=== PATIENT | female | born 1955 | race Caucasian/White ===

== ENCOUNTER 2024-08-19 11:01 | Emergency (ER) | payer MEDICARE, MEDICAID, SELFPAY ==
[2024-08-19 11:02] VITALS: BP 124/92; PULSE 106; RESP 18; TEMP 36.1; O2SAT 99; BMI 37.5
[2024-08-19 11:04] VITALS: BP 124/92; PULSE 106; RESP 18; TEMP 36.1; O2SAT 98
--- NOTE | 2024-08-19 11:13 | EX.ED.DYSGE1 ---
HPI History of Present Illness Chief Complaint: General Illness Informant: patient and family Onset/Context/Timing Onset: Days (2) Context: Sudden Onset Timing: Continuous Quality: Expressive aphasia Location: Speech Worsened by: Nothing Relieved by: Nothing Narrative Narrative: Patient presents with difficulty speaking that has been constant for the past 2 days. Patient was recently treated for a dental infection. Patient was started on antibiotics which has been helping. Family states patient has been having difficulty getting words out so and saying what she wants to say for the past 2 days. Patient denies any headaches. Patient denies any nausea or vomiting. Patient denies any paresthesias or weakness. Patient denies any other symptoms. PFSH PFSH Medical History no medical history no medical history Home Medications ?Medication ?Instructions ?Recorded ?Last Taken ?Type NK 08/19/24 Unknown History Allergy/AdvReac Type Severity Reaction Status Date / Time No Known Allergies Allergy Verified 08/19/24 11:06 Family History no significant family his Surgical History no surgical history no surgical history Social History (Updated 08/19/24 @ 11:[address] Rojelio Ferrer, DO) Smoking Status: Current every day smoker tobacco type: cigarettes Smoking packs per day: 1 Smoking cigarettes per day: 20.0 ROS ROS ED Constitutional Constitutional ED: Denies chills or fever(s) Eyes Eyes: Denies blurry vision or change in vision ENT ENT ED: Denies rhinorrhea or sore throat Cardiovascular Cardiovascular: Denies chest pain or palpitations Respiratory/Chest Respiratory/Chest: Denies cough or dyspnea Gastrointestinal Gastrointestinal: Denies nausea or vomiting Genitourinary Genitourinary ED: Denies dysuria or hematuria Musculoskeletal Musculoskeletal: Denies back pain or neck pain Integumentary Denies abscess or rash Neurologic Neurologic: Denies headache(s) or weakness Allergic/Immunologic Allergic/Immunologic ED: Denies mouth swelling or urticaria EXAM Physical Exam Const Vital Signs: 08/19/24 11:02 08/19/24 11:04 08/19/24 11:16 Temperature 96.9 F L 96.9 F L Temperature Source Oral Oral Pulse Rate 106 H 106 H Respiratory Rate 18 18 Respiratory Pattern Normal Blood Pressure 124/92 H 124/92 H Blood Pressure Mean 102 102 Pulse Ox 99 98 Oxygen Delivery Method Room Air Room Air 08/19/24 11:20 08/19/24 11:50 08/19/24 12:20 Temperature Temperature Source Pulse Rate 100 95 Respiratory Rate 18 17 Respiratory Pattern Blood Pressure 190/66 H 158/76 H Blood Pressure Mean 107 103 Pulse Ox 98 97 Oxygen Delivery Method Room Air Room Air Room Air 08/19/24 12:30 Temperature Temperature Source Pulse Rate 96 Respiratory Rate 14 Respiratory Pattern Blood Pressure 158/76 H Blood Pressure Mean 103 Pulse Ox 100 Oxygen Delivery Method Room Air Positive well nourished and well developed General Appearance ED: well developed and NAD HEENT Reports moist mucous membranes Neck supple and no JVD Resp normal respiratory effort and clear to auscultation bilaterally Cardio regular rate and regular rhythm GI non-tender and non-distended Palpation: soft Extremity normal to inspection General Extremety ED: Negative for edema or tenderness General Extremity: Negative for edema Neuro oriented x3, CN's II-XII intact bilaterally and no sensory deficits noted Sensorium / Orientation: alert Motor Exam: strength 5/5 throughout Psych mental status grossly normal MDM MDM MDM Narrative Medical decision making narrative: Differential diagnosis includes but is not limited to stroke, electrolyte abnormality, intracranial bleeding, sepsis, dehydration, cardiac dysrhythmia, cardiac ischemia, coagulopathy, and anxiety. EKG will be obtained to assess for cardiac dysrhythmia and cardiac ischemia. CT scan of the brain will be obtained to assess for intracranial bleeding and stroke. CTA of the head and neck will be obtained to assess for large vessel occlusion and carotid stenosis. Chest x-ray will be obtained to assess for pneumonia and bronchitis. CBC will be obtained to assess for leukocytosis and anemia. Basic metabolic profile will be obtained to assess for electrolyte abnormality renal function. PT with INR and PTT will be obtained to assess for coagulopathy. Serum lactate will be obtained to assess for sepsis. History & Record Review Additional record(s) reviewed:: No prior records Lab Data Attestation: I reviewed the patient's lab results. Lab results narrative: CBC was reviewed and was within normal limits. Basic metabolic profile was reviewed. Creatinine was slightly elevated at 1.37. Glucose was elevated at 210. The remainder was within normal limits. High-sensitivity troponin was reviewed and was less than 6. Labs: Laboratory Results - last 24 hr 08/19/24 11:50 WBC 7.7 RBC 4.93 Hgb 14.9 Hct 44.1 MCV 89.5 MCH 30.2 MCHC 33.8 RDW Std Deviation 44.6 H RDW Coeff of Temo 13.7 Plt Count 258 MPV 10.4 Immature Gran % (Auto) 0.400 Neut % (Auto) 63.5 Lymph % (Auto) 28.6 Knott % (Auto) 5.2 Eos % (Auto) 0.7 Baso % (Auto) 1.6 H Absolute Neuts (auto) 4.9 Absolute Lymphs (auto) 2.19 Nucleated RBC % 0 PT 14.6 INR 1.1 APTT 29.1 Sodium 135 Potassium 4.1 Chloride 99 Carbon Dioxide 21.7 Anion Gap 14 BUN 16 Creatinine 1.37 H Estim Creat Clear Calc 40.03 L Est GFR (MDRD) Non-Af 41 L BUN/Creatinine Ratio 11.6 Glucose 210 H Calcium 9.3 Troponin T High Sens < 6 Radiography Chest X-Ray - ED: 1 View, Read by ED Physician, Read by Radiologist and No Acute Disease Diagnostic Testing: Clinical Impression(s) from Imaging Studies Brain CT 08/19/24 11:20 IMPRESSION: 1. No acute intracranial finding. 2. Findings of chronic microvascular ischemic changes and age-related changes. Dr. Fernandez discussed these findings via telephone with Dr. Ferrer at 12:22 p.m. on 08/19/2024. Reading Location: [facility] Head/Neck CTA 08/19/24 11:21 IMPRESSION: Limited visualization due to motion artifact. No large vessel occlusion, AVM or aneurysm. Reading Location: [facility] Chest X-Ray 08/19/24 12:02 IMPRESSION: COPD. No acute findings. Reading Location: [facility] Portable 1 view chest x-ray was obtained. On my independent interpretation, lung khan are clear. There is normal cardiac silhouette. Bony thorax is normal. There is no acute process noted. Radiologist also interpreted the x-ray and agrees. CT scan of the brain was obtained. There is no acute intracranial abnormality. This was interpreted by the radiologist and was also independently reviewed by myself. CTA of the head and neck was obtained. There is no evidence of large vessel occlusion, AVM, or aneurysm. This was interpreted by the radiologist and is also independently reviewed by myself. EKG Initial EKG: Attestation: I personally reviewed and interpreted this EKG as follows: Interpretation: No Acute Injury Pattern and Sinus Tachycardia (103) Comments: EKG was obtained. On my independent interpretation, it showed a sinus tachycardia with a rate of 103. TX interval, QRS interval, and QTc intervals were all normal. [place] was normal. There are no acute ST or T wave changes. Prior EKG tracings: not available for review Prior: No Prior Treatment and Re-Evaluation :: Stroke workup was obtained. Patient was advised of her findings. Patient is still having difficulty getting her words out. Patient was advised that this could be due to a stroke. Patient was advised of the need for further testing and admission. Patient is refusing to be admitted. Patient states she needs to go home and take care of her dog. I advised the patient that admission would expedite her testing process and treatment. However, patient refuses to be admitted and will sign out AGAINST MEDICAL ADVICE. Patient was instructed to follow-up with a primary care physician in 5 to 7 days. Patient was instructed to return if worse in any way. Patient and family understood and were agreeable with the plan. All questions were answered. Discharge Plan Triage Chief Complaint: General Illness ED Provider: Rojelio Ferrer Dx/Rx/DC Orders Clinical Impression: Expressive aphasia, Tobacco use disorder Instructions: What Is Aphasia?, Dysarthria: Improving Speech, Treating Aphasia, ED How to Quit Smoking Prescriptions: No Action NK Primary Care Provider: Care Physician,No Primary Referrals: Care Physician,No Primary [Primary Care Provider] - Medical [place],Abby Moreno [Non-Staff] - As soon as possible Activity Restrictions/Additional Instructions: Take 1 regular strength aspirin daily Print Language: Portuguese Disposition Disposition: Against Medical Advice
--- NOTE | 2024-08-19 11:20 | EKG12_ITS ---
Test Reason : GENERAL ILLNESS Blood Pressure : */* mmHG Vent. Rate : 103 BPM Atrial Rate : 103 BPM P-R Int : 156 ms QRS Dur : 78 ms QT Int : 332 ms P-R-T Axes : 22 30 47 degrees QTcB Int : 434 ms Sinus tachycardia Low voltage QRS Borderline ECG Confirmed by CARL DOTSON, LONNIE ([id number]), editor managing newspaper DANYEL DELACRUZ ([id number]) on 08/21/2024 7:44:13 AM Referred By: BRICE Confirmed By: LONNIE HENRY MD
--- NOTE | 2024-08-19 11:20 | CT_ITS ---
EXAM: STROKE BRAIN/HEAD WITHOUT CONT CLINICAL HISTORY: 69 y/o F with NEURO DEFICIT, ACUTE, STROKE SUSPECTED. COMPARISON: None. TECHNIQUE: Routine CT imaging of the head without IV contrast. Additional multiplanar reformats were obtained. Dose reduction techniques were used including intermediate exposure control (AEC),iterative reconstruction technique, and/or mA and/or KV dose adjustments based on patient's size. FINDINGS: The ventricles and subarachnoid spaces are normal for patient age. No acute intracranial hemorrhage or herniation. Small chronic ischemic type infarcts within the left frontoparietal lobe and left cerebellum. Lacunar type infarcts within the bilateral basal ganglia and left centrum semiovale. Mild scattered supratentorial white matter hypodensities. The gonzalez-white matter interfaces are otherwise maintained. The orbits, visualized paranasal sinuses and mastoids are unremarkable. No acute calvarial fracture or scalp hematoma. CT/STROKE Brain/Head without Cont IMPRESSION: 1. No acute intracranial finding. 2. Findings of chronic microvascular ischemic changes and age-related changes. Dr. Fernandez discussed these findings via telephone with Dr. Ferrer at 12:22 p.m. on 08/19/2024. Reading Location: [id number]
--- NOTE | 2024-08-19 11:21 | CT_ITS ---
PROCEDURE: STROKE CTA HEAD AND NECK W/CON 08/19/2024 REASON FOR EXAM: NEURO DEFICIT, ACUTE, STROKE SUSPECTED TECHNIQUE: STROKE CTA HEAD AND NECK W/CON Multiplanar and multisequence images were obtained. CONTRAST: ISOVUE 370 VOLUME: 100 mL One or more dose reduction techniques were used (e.g., Automated exposure control, adjustment of the mA and/or kV according to patient size, use of iterative reconstruction technique). RADIATION DOSE SUMMARY: CTDlvol: 100 mGy DLP: 1800 mGycm COMPARISON: Same-day noncontrast CT head. FINDINGS: See same day CT head for discussion of nonvascular findings. Visualization is significantly limited by motion artifact despite repeated imaging sequences. CTA neck: Three-vessel aortic arch with mixed calcific plaque. The origins of the bilateral vertebral arteries are widely patent. Mixed calcific plaque of the bilateral cervical carotid arteries without focal stenosis or narrowing by NASCET criteria. CTA head: Atherosclerotic plaque of the bilateral carotid siphons resulting in moderate multifocal narrowing on the right. The bilateral anterior, middle and posterior cerebral arteries are grossly patent. Visualization of the more distal arteries is limited by motion artifact. No obvious aneurysm or AVM. Major venous structures: Grossly unremarkable. Other findings: Right thyroid lobe nodules which do not meet criteria for dedicated follow-up. Multiple dental caries. Mild cervical spondylosis. Biapical emphysema. CT/STROKE CTA Head AND Neck W/Con IMPRESSION: Limited visualization due to motion artifact. No large vessel occlusion, AVM o r aneurysm. Reading Location: [id number]
--- OUTSIDE RECORDS SUMMARY | 2024-08-19 11:34 | XMS RPT_ITS | CCD ---
Author Organization [facility] Care Team Providers Care Bellman Driver Name Role Phone Unavailable Primary Care Provider NELIA Chaney Attending Unavailable Problems Problem Classification Problem Date Documented Da te Episodic/Chronic Residual codes; unclassified (1 source) Medical care unavailable; Translations: [Procedure and treatment not carried out for other reasons] 08-29-2023 Episodic Residual codes; unclassified (1 source) Procedure and treatment not carried out for other reasons; Translations: [Treatment not available] Onset: 08-29-2023 Episodic Encounters Encounter Date Encounter Type Care Provider Facility Start: 08-29-2023 End: 08-29-2023 ambulatory NELIA BURKS Facility:[facility] Start: 08-29-2023 E-mail encounter fro m caregiver Nelia Burks ALEXANDRA.JACKI Work Phone: Telemedicine Start: 08-29-2023 End: 08-29-2023 Telemedicine consultation with patient Nelia Burks ALEXANDRA.JACKI Work Phone: Telemedicine Comment on above: Virtual visit Treatment not availa ble (Primary Dx) Plan of Treatment Date Care Activity Detail Author Start: 11-06-2023 Influenza vaccination Influenz a Vaccine (Season Ended) [facility] Start: 03-07-2023 Advance Directive Discussion Advance Directive Discussion [facility] Start: 03-07-2023 Behavioral Health Screening Behavioral Health Screening [facility] Start: 11-05-2022 Covid-19 Vaccine ( season) Covid-19 Vaccine ( season) [facility] Start: 2018 Pneumococcal Vaccine : 65+ (1 of 1 - PCV) Pneumococcal Vaccine: 65+ (1 of 1 - PCV) [facility] Start: 2018 Screening for osteoporosis Bone Density Screening [facility] Start: 2013 RSV Vaccine (1 - 1-d ose 60+ series) RSV Vaccine (1 - 1-dose 60+ series) [facility] Start: 2003 Shingrix Vaccine (1 of 2) Shingrix V accine (1 of 2) [facility] Start: 1998 Diabetes Screening Diabetes Screenin g [facility] Start: 1998 Lipid panel Lipid Screening [facility] Start: 1998 Screening for malign ant neoplasm of colon [facility] Start: 1993 Screening for malign ant neoplasm of breast Mammogram Screening [facility] Start: 1972 Urine microalbumin profile DTaP,Tdap,Td Vaccine (1 - Tdap) [facility] Start: 1971 Hepatitis C screening Hepatitis C Sc king [facility] Payers Date Payer Category [place]ayer [place] [id number] 2019-Present [phone] [address] [place] [address] Medicaid [id number] 2019 Medicaid [id number] Social History Date Type Detail Facility Tobacco smoking status NHIS Tobacco smoking consumption unknown [facility] Work Phone: Start: 1955 Sex Assigned At Not on file [facility] Gender identity Not on file [facility] inic Progress note 08-29-2023 Note Date & Type Note Facility 08-29-2023 Note HNO ID: [id number] Author: NELIA BURKS APRN.JACKI Service: ? Author Type: Nurse Practitioner Type: Progress Notes Filed: 08/29/2023 16:16 Note Text: Patient LWBS. [facility] History of Present illness Narrative 08-29-2023 Nelia Burks APRN.CNP - 08/29/2023 4:16 PM EDT Note Date & Type Note Facility 08-29-2023 History of Presen t illness Narrative Images from the original note were not included. Patient LWBS. documented in this encounter [facility] Evaluation note Note Date & Type Note Facility Evaluation note Diagnosis Treatment not available- Primary Procedure not carried out for other reasons documented in this encounter [facility] Summary Purpose Family History No Family History Records Found Advance Directives No Advanced Directives Records Found Additional Source Comments Source Comments (unrecognize d section and content) In the event this informatio n is protected by the [facility] Confidentiality of Alcohol and Drug Abuse Patient Records regulations: The Federal rules restrict any use of the information to criminally investigate or prosecute any alcohol or drug abuse patient[facility] event this information is protected by the Federal Confidentiality of Alcohol and Drug Abuse Patient Records regulations: The Federal rules restrict any use of the information to criminally investigate or prosecute any alcohol or drug abuse patient.[facility] Reason for Visit (unrecogniz ed section and content) Reason Comments Appointment Cancelled INFORMATION SOURCE (unrecogn ized section and content) DATE CREATED AUTHOR 09/03/2023 [facility] FOR RECORDS PERTAINING TO PATIENTS WHO ARE OR HAVE BEEN ENROLLED IN A CHEMICAL DEPENDENCY/SUBSTANCEABUSE PROGRAM, SOME INFORMATION MAY BE OMITTED. This clinical summary was aggregated from multiple sources. Caution should be exercised in using it in the provision of clinical care. This summary normalizes information from multiple sources, and as a consequence, information in this document may materially change the coding, format and clinical context of patient data. In addition, data may be omitted in some cases. CLINICAL DECISIONS SHOULD BE BASED ON THE PRIMARY CLINICAL RECORDS. [employer] [facility]. provides no warranty or guarantee of the accuracy or completeness of information in this document.
[2024-08-19 11:50] VITALS: BP 190/66; PULSE 100; RESP 18; O2SAT 98
[2024-08-19 11:58] LABS: Absolute Lymphocyte Count 2.19 X10^3/uL (0.83-4.51); Absolute Neutrophil Count 4.9 X10^3/uL (2.0-7.7); Basophil# 0.12 X10^3/uL; Basophil% 1.6 % (0-1); Eosinophil# 0.05 X10^3/uL; Eosinophils% 0.7 % (0-5); Hematocrit 44.1 % (37-47); Hemoglobin 14.9 g/dL (12.0-15.0); Lymphocyte # 2.19 X10^3/ul (0.83-4.51); Lymphocyte % 28.6 % (19-41); Mean Corp Hgb Conc 33.8 g/dL (32-36); Mean Corpuscular Hgb 30.2 pg (27.0-32.0); Mean Corpuscular Volume 89.5 fL (81-99); Mean Platelet Vol. 10.4 fl (6.2-12.0); Monocyte% 5.2 % (0-10); NRBC Flagged by Analyzer 0 % (0-5); Neutrophil # 4.86 X10^3/uL (2.7-7.7); Neutrophil % 63.5 % (47-70); Platelet Count 258 K/mm3 (150-450); RBC Distribution Width CV 13.7 % (11.6-14.6); RBC Distribution Width SD 44.6 fl (35.1-43.9); Red Blood Count 4.93 M/mm3 (4.2-5.4); White Blood Count 7.7 K/mm3 (4.4-11.0)
--- NOTE | 2024-08-19 12:02 | RAD_ITS ---
PROCEDURE: CHEST 1 VIEW 08/19/2024 REASON FOR EXAM: NEURO DEFICIT, ACUTE, STROKE SUSPECTED TECHNIQUE: Frontal view of the chest. COMPARISON: None. FINDINGS: Hardware: None. Heart: The heart size is normal. Lungs: Findings of emphysema with scattered areas of scarring. No focal consolidation, pleural effusion or pneumothorax. Bones: Degenerative changes are identified within the thoracic spine. Bilateral glenohumeral joint arthrosis. RAD/Chest 1 View IMPRESSION: COPD. No acute findings. Reading Location: [id number]
[2024-08-19 12:10] LABS: Partial Thromboplast Time 29.1 Seconds (24.1-36.2)
[2024-08-19 12:20] VITALS: BP 158/76; PULSE 95; RESP 17; O2SAT 97
[2024-08-19 12:25] LABS: International Normalized Ratio 1.1; Prothrombin Time (Protime)PT. 14.6 SECONDS (11.7-14.9)
--- NOTE | 2024-08-19 12:25 | CM.ED ---
Social Work Date of referral: 08/19/24 Reason for referral: No PCP Referred by: Social Work Identification Patient provided consent to social work visit. Director Of Reservations provided written resource for the [facility] for PCP, dental as well as other services offered. Patient accepted and expressed appreciation. No other requests/needs identified at this time. Pema Mathis, APICULTURE TEACHER, HISTORICAL GUIDE
[2024-08-19 12:28] LABS: Anion Gap 14 (5-15); BUN 16 mg/dL (4-19); BUN/Creat Ratio 11.6 RATIO (10-20); Calcium,Total 9.3 mg/dL (7.6-11.0); Carbon Dioxide 21.7 mmol/L (21.0-32.0); Chloride 99 mmol/L (98-108); Creatinine, Serum 1.37 mg/dL (0.70-1.20); EST Glomerular Filtration Rate 41 (>60); Estimated Creatinine Clearance 40.03 ml/min (50-250); Glucose 210 mg/dL (70-99); Potassium 4.1 mmol/L (3.3-5.1); Sodium Level 135 mmol/L (133-145); Troponin T High Sensitivity < 6 ng/L (<=14)
[2024-08-19 12:30] VITALS: BP 158/76; PULSE 96; RESP 14; O2SAT 100
== END 2024-08-19 13:12 | disposition left against medical advice (07) ==
PROVIDERS: Emergency Provider Emergency Medicine; Visit Provider Emergency Medicine
DX: R47.01 Aphasia (principal); J44.9 Chronic obstructive pulmonary disease, unspecified; F17.210 Nicotine dependence, cigarettes, uncomplicated; Z53.29 Procedure and treatment not carried out because of patient's decision for other reasons
CPT/HCPCS: 70450; 70496; 70498; 71045; 80048; 84484; 85025; 85610; 85730; 93005; 99284; Q9967

== ENCOUNTER → 2024-08-29 | Outpatient (CLI) | payer MEDICARE, MEDICAID, SELFPAY ==
[2024-08-29 16:40] LABS: Absolute Neutrophil Count 9.8 X10^3/uL (2.0-7.7); Basophil% 0.8 % (0-1); Eosinophil# 0.06 X10^3/uL; Eosinophils% 0.5 % (0-5); Hematocrit 42.3 % (37-47); Hemoglobin 14.1 g/dL (12.0-15.0); Lymphocyte % 16.3 % (19-41); Mean Corp Hgb Conc 33.3 g/dL (32-36); Mean Corpuscular Hgb 30.2 pg (27.0-32.0); Mean Corpuscular Volume 90.6 fL (81-99); Mean Platelet Vol. 10.9 fl (6.2-12.0); Monocyte# 0.79 X10^3/uL; Monocyte% 6.1 % (0-10); NRBC Flagged by Analyzer 0 % (0-5); Neutrophil # 9.78 X10^3/uL (2.7-7.7); Neutrophil % 76.1 % (47-70); Platelet Count 258 K/mm3 (150-450); RBC Distribution Width CV 13.5 % (11.6-14.6); Red Blood Count 4.67 M/mm3 (4.2-5.4); White Blood Count 12.9 K/mm3 (4.4-11.0)
[2024-08-29 17:54] LABS: ALB/GLOB Ratio 1.3 RATIO (0.9-2.4); AST(SGOT) 18 U/L (<=31); Alanine Aminotransfer ALT/SGPT 15 U/L (<=34); Alkaline Phosphatase 80 U/L (35-104); Anion Gap 14 (5-15); BUN 9 mg/dL (4-19); BUN/Creat Ratio 7.9 RATIO (10-20); Calcium,Total 9.3 mg/dL (7.6-11.0); Carbon Dioxide 23.8 mmol/L (21.0-32.0); Chloride 99 mmol/L (98-108); Cholesterol 164 mg/dL (<=200); Creatinine, Serum 1.14 mg/dL (0.70-1.20); EST Glomerular Filtration Rate 51 (>60); Globulin 3.2 g/dL (2.2-4.2); Glucose 183 mg/dL (70-99); High Density Lipoprotein 55 mg/dL; Low Density Lipoprotein Calc. 80 mg/dL; Protein, Total 7.2 g/dL (5.9-8.4); Sodium Level 137 mmol/L (133-145); Total Bilirubin 0.41 mg/dL (0.00-1.30); Triglycerides 144 mg/dL; Very Low Density Lipoprotein 29 mg/dL (5-40); cholesterol:hdl ratio screen 2.98
== END | disposition home or self-care (01) ==
LOC: VSLAB 10:55
DX: I10 Essential (primary) hypertension (principal)
CPT/HCPCS: 36415; 80053; 80061; 84443; 85025

== ENCOUNTER → 2024-09-17 | Outpatient (CLI) | payer MEDICARE, MEDICAID, SELFPAY ==
--- NOTE | 2024-09-17 08:42 | RDU_ITS ---
Reason For Study Reason For Study: CKD Right Renal Artery Left Renal Artery Right renal artery ostium 207.8/41.8 Left renal artery ostium 151/21.7 RSV/EDV. PSV/EDV. Right renal artery proximal 166.9/14.9 Left renal artery proximal PSV/EDV PSV/EDV. 126.3/19 . Right renal artery mid 157.3/20 PSV/EDV. Left renal artery mid 181.3/24.5 Right renal artery distal 132.3/22.1 PSV/EDV . PSV/EDV. Left renal artery distal 111.9/21.2 Right RAR 3.72. PSV/EDV. Right Renal Parenchyma Left RAR 3.24. Upper Pole Medula 41.5/8 PSV/EDV. Left Renal Parenchyma Right upper pole medulla EDR 0.2 . Left upper pole medulla 48.6/10.2 Right upper pole medulla R.I. 0.81 . PSV/EDV . Upper K[place] Cortx 24.5/4.2 PSV/EDV. Left upper pole medulla EDR 0.2 . Right upper pole cortex EDR 0.2 . Left upper pole medulla R.I. 0.79 . Right upper pole cortex R.I. 0.83 . UP Cortex 31.2/9.3 PSV/EDV. Right lower Pole medulla 35.5/6.4 Left upper pole cortex EDR 0.3 . PSV/EDV . Left upper pole cortex R.I. 0.70 . Right lower pole medulla EDR 0.2 . Left lower Pole medulla 44.9/8.4 Right lower pole medulla R.I. 0.82 . PSV/EDV . Lower Pole Cortex 26.2/4.2 PSV/EDV. Left lower pole medulla EDR 0.2 . Right lower pole cortex EDR 0.2 . Left lower pole medulla R.I. 0.81 . Right lower pole cortex R.I. 0.84 . Lower Pole Cortx 27.6/8.4 PSV/EDV. Right Renal Hilar Left lower pole cortex EDR 0.3 . Right Hilar avg 73.6/12.4 PSV/EDV. Left lower pole cortex R.I. 0.70 . Right hilar acceleration time 40 m/sec. Left Renal Hilar Right Renal Dimensions LT Hilar avg 57.3/11.9 PSV/EDV . Right kidney size 8.91 cm . Left hilar acceleration time 20 m/sec. Right cortical dimension 1.30 cm . Left Renal Dimensions Left kidney size 9.34 cm . Left cortical dimension 1.32 cm . Aorta Proximal abdominal aorta 1.25 x 1.27 cm . Proximal abdominal aorta peak systolic velocity is 55.9 cm/sec . Distal abdominal aorta 1.12 x 1.19 cm . Distal abdominal aorta peak systolic velocity is 36.7 cm/sec . VL/Renal Artery Duplex Ultrasound Interpretation Summary Right renal artery patent with > 60% stenosis. Left renal artery patent with < 60% stenosis. Right renal vein patent. Left renal vein patent. Right kidney diminshed in size. Left kidney normal in size. Ordering Physician: Mai Beckham Referring Physician: Mai Beckham Performed By: Sharifa Moses RVT
== END | disposition home or self-care (01) ==
DX: N18.9 Chronic kidney disease, unspecified (principal)
CPT/HCPCS: 93975

== ENCOUNTER 2024-09-18 18:25 | Observation (INO) | payer MEDICARE, MEDICAID, SELFPAY ==
[2024-09-18 18:28] VITALS: BP 168/95; PULSE 133; RESP 21; TEMP 36.7; O2SAT 98; BMI 37.3
[2024-09-18 18:38] VITALS: BMI 36.8
--- NOTE | 2024-09-18 19:14 | EDS_ITS ---
HPI History of Present Illness Chief Complaint: Neuro S/Sx Onset/Context/Timing Onset: Weeks (4) Context: Sudden Onset Worsened by: Nothing Relieved by: Nothing Narrative Narrative: Patient presents today for possible stroke. Patient was seen here approximately 1 month ago and was worked up for a stroke at that time. Patient refused to be admitted at that time. Patient followed up and had an MRI today which showed a subacute stroke in the left frontal lobe that was approximately 3 to 4 weeks old. Patient was then told to come to the emergency department for possible admission and further evaluation. Patient denies any new symptoms. Patient denies any paresthesias or weakness. Patient denies any headaches. [facility] Medical History (Updated 09/18/24 @ 20:[address] Rojelio Ferrer DO) Hypertension GERD (gastroesophageal reflux disease) Medical History no medical history Home Medications ?Medication ?Instructions ?Recorded ?Last Taken ?Type amlodipine 10 mg tablet 10 mg PO DAILY 09/18/24 Unkn own History aspirin 81 mg tablet 81 mg PO DAILY 09/18/24 Unkn own History pantoprazole 40 mg tablet,delayed 40 mg PO DAILY 09/18 Unknown History release Allergy/AdvReac Type Severity Reaction Status Date / Time No Known Allergies Allergy Verified 09/18/24 18:32 Surgical History (Updated 09/18/24 @ 20:[address] Rojelio Ferrer DO) Hx of hysterectomy Hx of cholecystectomy Social History Smoking Status: Current every day smoker tobacco type: cigarettes ROS ROS ED Constitutional Constitutional ED: Denies chills or fever(s) Eyes Eyes: Denies blurry vision or change in vision ENT ENT ED: Denies rhinorrhea or sore throat Cardiovascular Cardiovascular: Denies chest pain or palpitations Respiratory/Chest Respiratory/Chest: Denies cough or dyspnea Gastrointestinal Gastrointestinal: Denies nausea or vomiting Genitourinary Genitourinary ED: Denies dysuria or hematuria Musculoskeletal Musculoskeletal: Denies back pain or neck pain Integumentary Denies abscess or rash Neurologic Neurologic: Denies headache(s) or weakness Allergic/Immunologic Allergic/Immunologic ED: Denies mouth swelling or urticaria EXAM Physical Exam Const Vital Signs: 09/18/24 18:28 09/18/24 20:00 Temperature 98.1 F Temperature Source Oral Pulse Rate 133 H 100 Respiratory Rate 21 H 18 Blood Pressure 168/95 H 136/84 H Blood Pressure Mean 119 101 Pulse Ox 98 97 Oxygen Delivery Method Room Air Positive well nourished and well developed General Appearance ED: well developed and NAD HEENT Reports moist mucous membranes Neck supple and no JVD Resp normal respiratory effort and clear to auscultation bilaterally Cardio regular rhythm Rate: tachycardic GI non-tender and non-distended Palpation: soft Neuro oriented x3, CN's II-XII intact bilaterally and no sensory deficits noted Sensorium / Orientation: alert Motor Exam: strength 5/5 throughout Psych mental status grossly normal MDM MDM MDM Narrative Medical decision making narrative: Differential diagnosis includes stroke, cardiac dysrhythmia, cardiac ischemia, electrolyte abnormality, urinary tract infection, coagulopathy, hypertensive urgency, and anxiety. EKG will be obtained to assess for cardiac dysrhythmia and cardiac ischemia. CBC will be obtained to assess for leukocytosis and anemia. Basic metabolic profile will be obtained to assess for electrolyte abnormality and renal function. PT with INR and PTT will be obtained to assess for coagulopathy. Urinalysis will be obtained to assess for urinary tract infection and hematuria. History & Record Review Additional record(s) reviewed:: Prior outpatient record, Prior ED visit and Prior labs Lab Data Attestation: I reviewed the patient's lab results. Lab results narrative: CBC was reviewed. There is a leukocytosis of 12.6. The remainder is within normal limits. Basic metabolic profile was reviewed and was essentially within normal limits. PT with INR and PTT were reviewed and were within normal limits. Urinalysis was reviewed. There is no evidence of urinary tract infection or hematuria. Labs: Laboratory Results - last 24 hr 09/18/24 09/18/24 19:24 19:28 WBC 12.6 H RBC 4.89 Hgb 14.8 Hct 43.2 MCV 88.3 MCH 30.3 MCHC 34.3 RDW Std Deviation 42.5 RDW Coeff of [place] 13.1 Plt Count 346 MPV 10.1 Immature Gran % (Auto) 0.400 Neut % (Auto) 73.1 H Lymph % (Auto) 19.2 [place] % (Auto) 5.7 Eos % (Auto) 0.6 Baso % (Auto) 1.0 Absolute Neuts (auto) 9.2 H Absolute Lymphs (auto) 2.41 Nucleated RBC % 0 PT 13.7 INR 1.0 APTT 26.2 Sodium 138 Potassium 3.9 Chloride 100 Carbon Dioxide 21.7 Anion Gap 17 H BUN 19 Creatinine 1.22 H Estim Creat Clear Calc 44.51 L Est GFR (MDRD) Non-Af 47 L BUN/Creatinine Ratio 15.7 Glucose 165 H Calcium 9.5 Urine Color Yellow Urine Clarity Clear Urine pH 6.0 Ur Specific [place] 1.015 Urine Protein 15 H Urine Glucose (UA) Normal Urine Ketones Negative Urine Occult Blood 25 H Urine Nitrite Negative Urine Bilirubin Negative Urine Urobilinogen Normal Ur Leukocyte Esterase Negative Urine RBC 0-5 SEEN Urine WBC 0-5 SEEN Ur Squamous Epith Cells 0-5 SEEN Ur Transition Epith Cell 0-5 SEEN Urine Bacteria 1+ Urine Mucus 0 SEEN EKG Initial EKG: Attestation: I personally reviewed and interpreted this EKG as follows: Interpretation: No Acute Injury Pattern and Sinus Tachycardia (With occasional PACs with a rate of 114) Comments: EKG was obtained. On my independent interpretation, it showed a sinus tachycardia with occasional PACs with a rate of 114. CA interval, QRS interval, and QTc intervals were all normal. [place] was normal. There are no acute ST or T wave changes. Prior EKG tracings: available for review Prior: Unchanged (08/19/2024) Treatment and Re-Evaluation :: Patient was given a dose of labetalol for her tachycardia and her blood pressure. Patient's blood pressure and tachycardia improved prior to administration of the labetalol. This was held. Case was discussed with the hospitalist. He will admit the patient for observation for echocardiogram. Patient and family understand and are agreeable with the plan. All questions were answered. Discharge Plan Triage Chief Complaint: Neuro S/Sx ED Provider: Rojelio Ferrer Dx/Rx/DC Orders Clinical Impression: Stroke, Hypertension, Tobacco use Prescriptions: No Action amlodipine 10 mg tablet 10 mg PO DAILY pantoprazole 40 mg tablet,delayed release (DR/EC) 40 mg PO DAILY aspirin 81 mg tablet 81 mg PO DAILY Primary Care Provider: Mai Beckham Referrals: Mai Beckham, RUBBER COVERING MACHINE OPERATOR-C [Primary Care Provider] - Print Language: [place] Islander Disposition Disposition: [facility]
--- NOTE | 2024-09-18 19:17 | EKG12_ITS ---
Test Reason : DYSRHYTHMIA Blood Pressure : */* mmHG Vent. Rate : 114 BPM Atrial Rate : 114 BPM P-R Int : 158 ms QRS Dur : 74 ms QT Int : 312 ms P-R-T Axes : 34 16 75 degrees QTcB Int : 430 ms Sinus tachycardia with Premature atrial complexes Otherwise normal ECG Confirmed by Elvis Frye ([id number]), avid editor JOSE AFLREDO BUTT ([id number]) on 09/19/2024 11:28:11 AM Referred By: Confirmed By: Elvis Frye
[2024-09-18 19:33] LABS: Mucous, Urine 0 SEEN /hpf (<or=2+)
[2024-09-18 19:38] LABS: Color, Urine Yellow (Yellow); Glucose, Dipstick Normal (Normal); Ketone-Dipstick Negative (Negative); Leukocyte Esterase-Dipstick Negative /ul (Negative); Nitrite-Dipstick Negative (Negative); Occult Blood-Urine 25 /ul (Negative); Protein-Dipstick 15 mg/dl (Negative); Specific Gravity, Urine 1.015 (1.002-1.030); Urine Bilirubin Dipstick Negative (Negative)
[2024-09-18 19:38] LABS: Hematocrit 43.2 % (37-47); Hemoglobin 14.8 g/dL (12.0-15.0); Immature Granulocytes Count 0.050 X10^3/uL (0.0-0.0); Mean Corp Hgb Conc 34.3 g/dL (32-36); Mean Corpuscular Volume 88.3 fL (81-99); Mean Platelet Vol. 10.1 fl (6.2-12.0); NRBC Flagged by Analyzer 0 % (0-5); Platelet Count 346 K/mm3 (150-450); RBC Distribution Width CV 13.1 % (11.6-14.6); RBC Distribution Width SD 42.5 fl (35.1-43.9); Red Blood Count 4.89 M/mm3 (4.2-5.4); White Blood Count 12.6 K/mm3 (4.4-11.0)
[2024-09-18 19:56] LABS: Red Blood Cells-Urine 0-5 SEEN /hpf (0-5); Squamous Epithelial Cells - UA 0-5 SEEN /hpf (5-10); Transitional Epithelial - Ur 0-5 SEEN /hpf (0-5)
[2024-09-18 20:00] VITALS: BP 136/84; PULSE 100; RESP 18; O2SAT 97
[2024-09-18 20:09] LABS: Anion Gap 17 (5-15); BUN 19 mg/dL (4-19); BUN/Creat Ratio 15.7 RATIO (10-20); Calcium,Total 9.5 mg/dL (7.6-11.0); Carbon Dioxide 21.7 mmol/L (21.0-32.0); Chloride 100 mmol/L (98-108); Estimated Creatinine Clearance 44.51 ml/min (50-250); Glucose 165 mg/dL (70-99); Partial Thromboplast Time 26.2 Seconds (24.1-36.2); Potassium 3.9 mmol/L (3.3-5.1); Prothrombin Time (Protime)PT. 13.7 SECONDS (11.7-14.9)
--- NOTE | 2024-09-18 20:37 | PCM.HP.STD ---
[facility] - General General Date of Admission: 09/18/24 Date of Service: 09/18/24 Chief Complaint: MRI positive for subacute infarct in Left-frontal lobe. HPI Narrative MODESTA MCDANIELS, is a 69 F with a past medical history of essential hypertension; on amlodipine, obesity (class II); with a BMI of 36.9 this admission, chronic tobacco abuse, history of hysterectomy, history of cholecystectomy, GERD; on pantoprazole and history of sudden-onset expressive aphasia lasting ~2 days after recent treatment for dental infection on August 19, 2024 with stroke alert called in ER but patient opting to leave AMA because she had to go home to take care of her dog who presents to [facility] ER after her MRI returned positive for subacute infarct in the Left frontal lobe. Ms. Mcdaniels reports her symptoms began approximately 1 month ago when she came to the ER with expressive aphasia but opted to leave AMA. She underwent follow-up MRI earlier today which showed subacute stroke in the left frontal lobe that was ~3-4 weeks old in addition to multiple chronic lacunar infarctions in the cerebral hemispheres, Left cerebral cerebellar hemisphere and brainstem and she was instructed to come to the emergency room for further evaluation and treatment. She admits she recently started her antihypertensive medications after initial apprehension and prolonged uncontrolled blood pressure. She denies any new symptoms including: paresthesias, generalized weakness, headache or expressive aphasia at this time. She also denies associated fever, chills, runny nose, sore throat, ear pain, chest pain, palpitations, heart racing, lower extremity edema, shortness of breath, cough, abdominal pain, nausea, vomiting, diarrhea, constipation, dysuria, hematuria or rash. In the ER she was diagnosed with subacute infarct of the Left frontal lobe and she was then admitted to the PCU under observation status for ongoing care for stay that is expected to be less than 2 midnights. [facility] Medical History Hypertension GERD (gastroesophageal reflux disease) Medical History no medical history Home Medications ?Medication ?Instructions ?Recorded ?Last Taken ?Type amlodipine 10 mg tablet 10 mg PO DAILY 09/18/24 09/18/24 History aspirin 81 mg tablet 81 mg PO DAILY 09/18/24 09/18/24 History pantoprazole 40 mg tablet,delayed 40 mg PO DAILY 09/18/24 09/18/24 History release Allergy/AdvReac Type Severity Reaction Status Date / Time No Known Allergies Allergy Verified 09/18/24 22:24 Surgical History Hx of hysterectomy Hx of cholecystectomy Social History Smoking Status: Current every day smoker tobacco type: cigarettes ROS ROS Narrative Review of Systems: Constitutional: Patient denies fever or chills. Eyes: Patient denies changes in vision or discharge from eyes. ENT: Patient denies runny nose, sore throat or ear pain. Resp: Patient denies SOB and cough. CV: Patient denies chest pain, palpitations, heart racing or LE edema. GI: Patient denies abdominal pain, nausea, vomiting, diarrhea or constipation. : Patient denies dysuria or hematuria. MSK: Patient denies arthralgias or myalgias. Skin: Patient denies rash, abscess, wounds or jaundice. Psych: Patient denies symptoms of uncontrolled depression or anxiety. Neuro: Patient denies headache, paresthesias or focal neurologic deficits. Allergy: Patient denies lip swelling, tongue swelling or urticaria. Hematology: Patient denies easy bleeding or easy bruisability. Endocrinology: Patient denies polyuria, polydipsia, polyphagia or heat/cold intolerance. 14 point ROS otherwise negative except for positives noted above in HPI. Vital Signs Vital Signs Vital Signs: 09/18/24 18:28 09/18/24 20:00 Temperature 98.1 F Temperature Source Oral Pulse Rate 133 H 100 Respiratory Rate 21 H 18 Blood Pressure 168/95 H 136/84 H Blood Pressure Mean 119 101 Pulse Ox 98 97 Oxygen Delivery Method Room Air Weight Weight: 201 lb 11.567 oz Body Mass Index (BMI) 36.8 Physical Exam Const alert, oriented x3, no apparent distress and healthy appearing Constitutional Narrative: Obese and nontoxic in appearance. General Appearance: cooperative HEENT normocephalic, head/scalp atraumatic, hearing grossly normal bilaterally and moist oral mucous membranes Eyes PERRL and EOMs intact bilaterally Neck no lymphadenopathy, supple and no JVD Resp normal respiratory effort, no retractions, no use of accessory muscles and clear to auscultation bilaterally Cardio regular rate and regular rhythm GI normal to inspection, nondistended, normoactive bowel sounds, soft to palpation, non-tender and non-distended GI Narrative: Obese. Extremity normal to inspection, full ROM and no clubbing, cyanosis or edema Skin Skin Narrative: Patient has no evidence of rash, abscess, wounds or jaundice. Neuro oriented x3, CN's II-XII intact bilaterally, moves all extremities and no focal motor deficits Sensorium / Orientation: awake, alert, oriented to person, oriented to place and oriented to time Speech: speech normal Psych affect normal Results Medical Records Data Attestation: I reviewed the patient's medical records Lab / Micro Data Attestation: I reviewed the patient's lab results. 09/18/24 19:28 09/18/24 19:28 Labs: Laboratory Results - last 24 hr 09/18/24 19:24: Urine Color Yellow, Urine Clarity Clear, Urine pH 6.0, Ur Specific [place] 1.015, Urine Protein 15 H, Urine Glucose (UA) Normal, Urine Ketones Negative, Urine Occult Blood 25 H, Urine Nitrite Negative, Urine Bilirubin Negative, Urine Urobilinogen Normal, Ur Leukocyte Esterase Negative, Urine RBC 0-5 SEEN, Urine WBC 0-5 SEEN, Ur Squamous Epith Cells 0-5 SEEN, Ur Transition Epith Cell 0-5 SEEN, Urine Bacteria 1+, Urine Mucus 0 SEEN 09/18/24 19:28: WBC 12.6 H, RBC 4.89, Hgb 14.8, Hct 43.2, MCV 88.3, MCH 30.3, MCHC 34.3, RDW Std Deviation 42.5, RDW Coeff of Temo 13.1, Plt Count 346, MPV 10.1, Immature Gran % (Auto) 0.400, Neut % (Auto) 73.1 H, Lymph % (Auto) 19.2, [place] % (Auto) 5.7, Eos % (Auto) 0.6, Baso % (Auto) 1.0, Absolute Neuts (auto) 9.2 H, Absolute Lymphs (auto) 2.41, Nucleated RBC % 0, PT 13.7, INR 1.0, APTT 26.2, Sodium 138, Potassium 3.9, Chloride 100, Carbon Dioxide 21.7, Anion Gap 17 H, BUN 19, Creatinine 1.22 H, Estim Creat Clear Calc 44.51 L, Est GFR (MDRD) Non-Af 47 L, BUN/Creatinine Ratio 15.7, Glucose 165 H, Calcium 9.5 Imaging [facility] Imaging Services [address] [place] [address] Brain W/WO Contrast MR#: [id number] Acct: [id number] Name: MODESTA MCDANIELS Rep #: [id number] : 1955 F 69 From: Ernesto Roque MD PCP: Mai Beckham [facility] LOCK[employer] ROOM SUPERVISOR-C Status: REG CLI Study: Brain W/WO Contrast Date of Exam: 09/18/24 Exam# [id number] Ordering Dr: Mai Beckham [facility] [employer] ROOM SUPERVISOR-C PROCEDURE: BRAIN W/WO CONTRAST 09/18/2024 REASON FOR EXAM: APHASIA TECHNIQUE: BRAIN W/WO CONTRAST Multiplanar and multisequence images were obtained. CONTRAST: Clariscan VOLUME: 19 mL COMPARISON: Noncontrast head CT and CTA head and neck, August 19, 2024. FINDINGS: There is a small area of gyriform enhancement in the left frontal lobe, with associated vasogenic edema extending into the subcortical and periventricular white matter of the right frontal lobe. The DWI and ADC images demonstrate a mixed pattern. These findings are consistent with a subacute infarction. The patient demonstrates multiple lacunar infarctions in the periventricular white matter of both cerebral hemispheres and small cortical infarctions in both occipital lobes. Additionally, there are 2 areas of abnormal signal in the left cerebellar hemisphere, and in the left side of the eliana, consistent with chronic lacunar infarctions. Additionally, there are areas of abnormal periventricular and subcortical white matter signal consistent with chronic ischemic white matter disease. There is a normal sulcal pattern and gyral configuration. There is no evidence of acute intracranial hemorrhage. The gonzalez-white differentiation is well preserved. The ventricles and basilar cisterns are normal. There are normal flow voids demonstrated in the recognized intracranial vessels. The cerebellar pontine angles are normal. The craniovertebral junction is normal. The sella and suprasellar regions are normal. The orbits and retro-orbital regions are unremarkable. The nasal septum is midline. The paranasal sinuses are clear. The mastoid air cells are clear. There is normal bone marrow signal in the skull base and calvarium. MRI/Brain W/WO Contrast IMPRESSION: 1. The findings in the left frontal lobe are consistent with a subacute infarction which could be 3 to 4-week-old. 2. There are multiple chronic lacunar infarctions in the cerebral hemispheres, the left cerebellar hemisphere and the brainstem. 3. There is chronic ischemic white matter disease. Reading Location: [place] [address] CC: Mai [facility] [employer] ROOM SUPERVISORMynor Beam ~ Wrecking Crane Engine Operator: Signed Assessment & Plan Assessment/Plan (1) History of CVA (cerebrovascular accident): (2) Tobacco use: (3) Obesity (BMI 30-39.9): (4) Hypertension: QUALIFIERS: Hypertension type: primary hypertension Qualified Code(s): I10 - Essential (primary) hypertension (5) Type 2 diabetes mellitus with hyperglycemia: QUALIFIERS: Diabetes mellitus edge grinder insulin use: without edge grinder use Qualified Code(s): E11.65 - Type 2 diabetes mellitus with hyperglycemia (6) Folate deficiency: PLAN: Plan 1. Subacute Left-frontal CVA evident on outpatient MRI after stroke alert 1 month ago today with patient leaving AMA in addition to multiple older lacunar infarcts also noted on MRI - Admit to PCU under observation status. Continue baby aspirin daily plus add statin. Check lipid profile, TSH, B12, folate and hemoglobin A1c. Check carotid Doppler to evaluate for stenosis. Check echocardiogram to evaluate LVEF. Finally, we will consult [facility] to see this patient on rounds in the a.m. with help appreciated in advance. 2. History of sudden-onset expressive aphasia lasting ~2 days after recent treatment for dental infection on August 19, 2024 with stroke alert called in ER but patient opting to leave AMA because she had to go home to take care of her dog complicating #1 - Noted. 3. Chronic Tobacco Abuse compounding #1 & #2 - Tobacco Cessation will be strongly encouraged with nicotine patch however to control cravings. 4. Obesity (class II); with a BMI of 36.9 this admission adding to the burden of disease outlined from #1- #3 - Weight loss will be recommended. Chronic tobacco abuse, history of hysterectomy, history of cholecystectomy, GERD; on pantoprazole and h who presents to [facility] ER after her MRI returned positive for subacute infarct in the Left frontal lobe. 5. Essential hypertension; on amlodipine - Maintain amlodipine as previous. Patient's multiple old lacunar infarctions on MRI likely due to uncontrolled hypertension. 6. Newly diagnosed DM-2; with hyperglycemia confirmed with elevated HgbA1c of 7.2% present on admission - We will consult scan coordinator and start lowest intensity SSI with FSBS q. AC/HS. 7. Newly diagnosed Folate deficiency with level of 4.37 ng/mL present on admission - Start IV folic acid and then transition to PO. 8. GERD; on pantoprazole - Resume PPI. 9. History of hysterectomy - Noted. 10. History of cholecystectomy - Noted. 11. DVT prophylaxis - Enoxaparin 40 mg sq daily. Total time: Approximately (but not less than) 70 minutes. Charges/Coding Visit Charges OBSV E&M: 73793 Observ/hosp same date L2
[2024-09-18 20:51] VITALS: BP 143/81; PULSE 101; RESP 18; TEMP 36.8; O2SAT 98
--- NOTE | 2024-09-18 20:51 | CASEMGMT ---
Care Management Face to Face with patient for initial transition planning/care coordination assessment in the ED. This check writer introduced self and role at [facility]. Patient alert and oriented. Patient willing to participate in assessment and is able to answer all questions appropriately. Patient's daughter, Willow, at bedside. Permission given to speak in front of Willow. Care providers, pharmacy, and demographics verified. Admitting Diagnosis: Subacute Left-frontal CVA evident on outpatient MRI Other diagnosis history: essential hypertension, sudden-onset expressive aphasia, GERD PCP: SHAQUILLE Adams Specialists: none Preferred Pharmacy: [facility] Insurance: [employer] (primary). Medicaid (secondary). Prescription Benefit: yes Living Will/HPOA: none, but would like to complete during admission. LNOK: daughter, Willow. Living Arrangements: lives with roommates, 1 story home with no steps to enter, independent with all ADLs/IADLs Transportation: patient does not drive; Willow gets patient to necessary appointments. DME: none HHC: none SNF/Rehab: none Community Resources: none Patient goals: Patient wishes to discharge home, denies need for home health care at this time. Patient denies any further needs or concerns at this time. Disposition Plan: admission to acute; RN CM/SW to follow for discharge planning needs that may arise. Genia Campbell, INSURANCE ADMINISTRATOR, ASSOCIATE PROFESSOR OF THEOLOGY
--- NOTE | 2024-09-18 21:01 | CDU_ITS ---
Reason For Study Reason For Study: CVA, evlauate for stenosis Rt. Velocities/BP Lt. Velocities/BP Prox CCA 43.7/7.8 cm/sec. Prox CCA 74/9 cm/sec. Mid CCA 43.7/9.7 cm/sec. Mid CCA 61.8/11.4 cm/sec. Dist CCA 38.1/6.9 cm/sec. Dist CCA 60.5/12.6 cm/sec. Prox ICA 82.6/15.1 cm/sec. Prox ICA 86.4/15.2 cm/sec. Mid ICA 87.6/17.6 cm/sec. Mid ICA 75.2/13.5 cm/sec. Dist ICA 101.1/15.1 cm/sec. Dist ICA 63.1/12.4 cm/sec. Rt. ICA/CCA = 2.31. Lt. ICA/CCA = 1.40. Prox ECA 10.3.5/11.4 cm/sec. Prox ECA 166.7/11.1 cm/sec. Rt. Vert. 40.9/9 cm/sec. Lt. Vert. 47.5/11.6 cm/sec. Right Extracranial There is intimal thickening but no significant atherosclerotic plaque noted in the right common carotid artery. There is heterogeneous, irregular atherosclerotic plaque noted in the right internal carotid artery. There is intimal thickening but no significant atherosclerotic plaque noted in the right external carotid artery. Antegrade flow is noted in the right vertebral artery. Left Extracranial There is homogeneous, smooth atherosclerotic plaque noted in the left common carotid artery. There is heterogeneous, irregular atherosclerotic plaque noted in the left internal carotid artery. There is intimal thickening but no significant atherosclerotic plaque noted in the left external carotid artery. Antegrade flow is noted in the left vertebral artery. Procedure Carotid Duplex [id number]. This is a Carotid Duplex examination using B-mode, color flow and specral Doppler. Exam performed in department. VL/Carotid Duplex Ultrasound Interpretation Summary Mild (<50%) stenosis right extracranial internal carotid. Mild (<50%) stenosis left extracranial internal carotid. Patent and antegrade vertebrals bilaterally. Ordering Physician: Caleb Garcia Referring Physician: Mai Beckham Performed By: Sharifa Moses RVT
--- NOTE | 2024-09-18 21:01 | ECHOD_ITS ---
Reason For Study Reason For Study: TIA/CVA Procedure This was a 2D Doppler, Color Flow transthoracic echocardiogram. Exam performed portable in patient room. Left Ventricle Normal LV size. The estimated ejection fraction is 65 %. Normal diastololic function. Right Ventricle Normal RV size. Normal systolic function. Atria The left and right atria are normal. Mitral Valve The mitral valve is structurally normal. No prolapse or stenosis seen. Trivial mitral valve insufficiency. Tricuspid Valve Normal tricuspid valve. Aortic Valve The aortic valve is not well visualized in the short axis view. There is no aortic stenosis. Pulmonic Valve The pulmonic valve is not well visualized. Great Vessels The aortic root is not well visualized. Pericardium/Pleural No pericardial effusion. MMode/2D Measurements & Calculations LVIDd: 4.7 cm IVSd: 0.88 cm LAV(MOD- bp): 40.4 ml LVIDs: 3.1 cm LVPWd: 0.87 cm LAV(MOD- bp) Indexed: 21.1 ml/m2 RVDd: 2.8 cm FS: 34.3 % LAV(MOD- sp2): 37.1 ml LAV(MOD- sp4): 37.9 ml SV(MOD- sp4): 38.4 ml LVAd ap4: 22.6 cm2 LVAd ap2: 17.5 cm2 LVLd ap4: 7.2 cm LVLd ap2: 7.6 cm SI(MOD- sp4): 20.0 ml/m2 EDV(MOD-sp4): 58.7 ml EDV(MOD-sp2): 34.0 ml EDV(sp4-el): 60.3 ml EDV(sp2-el): 34.4 ml LVAs ap4: 11.6 cm2 LVAs ap2: 9.0 cm2 LVLs ap4: 5.9 cm LVLs ap2: 5.8 cm ESV(MOD-sp4): 20.4 ml ESV(MOD-sp2): 11.9 ml ESV(sp4-el): 19.6 ml ESV(sp2-el): 11.8 ml EF(MOD-sp4): 65.3 % EF(MOD-sp2): 65.0 % EF(sp4-el): 67.6 % SV(MOD-sp2): 22.1 ml SV(sp4-el): 40.7 ml LA A4 area: 16.6 cm2 SI(MOD-sp2): 11.5 ml/m2 TAPSE: 2.3 cm RA A4 area: 12.1 cm2 Time Measurements MV dec time: 0.20 sec Doppler Measurements & Calculations MV E max amadeo: 75.5 cm/sec Lat Peak E' Amadeo: 10.0 cm/sec Med Peak E' Amadeo: 9.4 cm/sec MV A max amadeo: 104.0 cm/sec E/E' lat: 7.5 E/E' med: 8.1 MV E/A: 0.73 MV V2 max: 101.9 cm/sec MV P1/2t max amadeo: 77.8 cm/sec Ao V2 max: 150.3 cm/sec MV max P.2 mmHg MV P1/2t: 59.1 msec Ao max P.0 mmHg MV V2 mean: 61.0 cm/sec MV dec slope: 385.3 cm/sec2 Ao V2 mean: 103.0 cm/sec MV mean P.7 mmHg Ao mean P.8 mmHg MV V2 VTI: 20.5 cm MVA(P1/2t): 3.7 cm2 Ao V2 VTI: 33.3 cm AV (velocity ratio): 0.76 LV V1 max: 128.2 cm/sec PA V2 max: 109.0 cm/sec LV V1 max P.6 mmHg PA V2 mean: 76.2 cm/sec LV V1 mean P.0 mmHg LV V1 mean: 81.3 cm/sec LV V1 VTI: 25.4 cm ECHO/Echo Complete Interpretation Summary The estimated ejection fraction is 65 %. The study was technically difficult. Ordering Physician: Caleb Garcia Referring Physician: Mai Beckham Performed By: Felicita Miller, RDCS, RVT
[2024-09-18 22:08] LABS: Alcohol, Blood (Medical)-Serum < 10.1 mg/dL (<=10.0)
[2024-09-18 22:10] VITALS: BMI 37.3
[2024-09-18 22:12] LABS: Barbiturate Urine NEGATIVE (< 200 ng/mL); Benzodiazepine Urine NEGATIVE (< 200 ng/mL); PCP Urine NEGATIVE (< 25 ng/mL); THC Urine NEGATIVE (< 50 ng/mL)
[2024-09-18 22:12] LABS: FOLATES,SERUM (FOLIC ACID) 4.37 ng/mL (4.60-34.80)
[2024-09-18 22:20] VITALS: BP 149/75; PULSE 102; RESP 16; TEMP 36.7; O2SAT 97
--- OUTSIDE RECORDS SUMMARY | 2024-09-18 22:27 | XMS RPT_ITS | CCD ---
Author Organization [facility] Care Team Providers Care Family Preservation Caseworker Name Role Phone Unavailable Primary Care Provider UnavailCHRISS Marquez Attending Unavailable Dr. Rojelio Ferrer DO Emergency Provider [phone] Care Physician, No Primary Primary Care Provider Unavailable Dr. Rojelio Ferrer DO Attending Provider Beam LINTING MACHINE OPERATOR-C, Zebulun Primary Care Provider [phone] Beam LINTING MACHINE OPERATOR-C, Zebulun Attending Provider [phone] Beam VSC, Zebulun Attending Unavailable Beam VSC, Zebulun Referring Unavailable Beam VSC, Zebulun Primary Care Unavailable Beam VSC, Zebulun Attending Unavailable Beam VSC, Zebulun Referring Unavailable Beam VSC, Zebulun Primary Care Unavailable Care Physician, No Primary Primary Care Unava ilable Rojelio Ferrer Attending Unavailable Beam VSC, Zebulun Primary Care Unavailable Rojelio Dean Attending Unavailable Beam VSC, Zebulun Primary Care Unavailable Beam VSC, Zebulun Attending Unavailable Beam LINTING MACHINE OPERATOR-C, Zebulun Referring Provider [phone] Dr. Rojelio Dean MD Attending Provider [phone] Dr. Caleb Garcia DO Admit Provider Unavail able Dr. Caleb Garcia DO Attending Provider Unav ailable Medications Current Medications Medication Drug Class(es) Dates Sig (Normalized) Sig (Original) amLODIPine 10 mg oral tablet (1 source) Dihydropyridine Calcium Channel Kaelyn Start: 09-18-2024 take 1 tablet by mouth once daily Amlodipine 10 mg tablet Active 10 mg PO DAILY September 18, 2024 12:00am aspirin 81 mg oral tablet (1 source) Platelet Aggregation Inhibitor, Nonsteroidal Anti-inflammatory Drug Start: 07-15-2025 take 1 tablet by mouth once daily Aspirin 81 mg tablet Active 81 mg PO DAILY September 18, 2024 12:00am pantoprazole 40 mg delayed release oral tablet (1 source) Proton Pump Inhibitor Start: 09-18-2024 take 1 tablet by mouth once daily Pantoprazole 40 mg tablet,delayed release (DR/EC) Active 40 mg PO DAILY September 18, 2024 12:00am Problems Problem Classification Problem Date Documented Date Episodic/Chronic Acute cerebrovascular disease (1 source) Cerebrovascular accident; Translations: [Cerebral infarction, unspecified] 09-18-2024 Chronic Chronic kidney disease (1 source) Chronic kidney disease, unspecified; Translations: [Chronic kidney disease, unspecified] Onset: 09-17-2024 Chronic Esophageal disorders (1 source) Gastroesophageal reflux disease; Translations: [Gastro-esophageal reflux disease without esophagitis] 09-18-2024 Chronic Essential hypertension (3 sources) Essential (primary) hypertension; Translations: [Hypertensive disorder] Onset: 09-03-2024 09-18-2024 Chronic Other circulatory disease (2 sources) History of cerebrovascular accident; Translations: [Personal history of transient ischemic attack (TIA), and cerebral infarction without residual deficits] 09-18-2024 Episodic Other nervous system disorders (3 sources) Expressive dysphasia; Translations: [Aphasia] 08-19-2024 Chronic Other nervous system disorders (2 sources) Aphasia; Translations: [Aphasia] Onset: 08-24-2024 Chronic Other nutritional; endocrine; and metabolic disorders (2 sources) Body mass index 30+ - obesity; Translations: [Obesity, unspecified] 09-18-2024 Chronic Residual codes; unclassified (1 source) Medical care unavailable; Translations: [Procedure and treatment not carried out for other reasons] 08-29-2023 Episodic Residual codes; unclassified (1 source) Procedure and treatment not carried out for other reasons; Translations: [Treatment not available] Onset: 08-29-2023 Episodic Residual codes; unclassified (2 sources) Tobacco use and exposure - finding; Translations: [Tobacco use] 09-18-2024 Episodic Substance-related disorders (3 sources) Tobacco user; Translations: [Nicotine dependence, unspecified, uncomplicated] 08-19-2024 Chronic Results Test Name Value Interpretation Reference Range Facility Absolute lymphocyte countOrd ered By: Rojelio Ferrer on 09-18-2024 Lymphocytes Auto (Unsp spec) [#/Vol] 2.41 10*3/uL 0.83-4.51 [facility] Absolute neutrophil countOrd ered By: Rojelio Ferrer on 09-18-2024 Neutrophils (Bld) [#/Vol] 9.2 10*3/uL High 2.0-7.7 [facility] Activated partial thrombopla stin time (aPTT) in platelet poor plasma by coagulation aOrdered By: Rojelio Fererr on 09-18-2024 aPTT Coag (PPP) [Time] 26.2 s 24.1-36.2 [facility] Anion gap in Serum or Plasma Ordered By: Rojelio Ferrer on 09-18-2024 Anion gap [Moles/Vol] 17 mmol/L High 5-15 [facility] Automated lymphocyte count a s percentage of total leukocytesOrdered By: Rojelio Ferrer on 09-18-2024 Lymphocytes/100 WBC Auto (Unsp spec) 19.2 % 19-41 [facility] BUN/creatinine ratioOrdered By: Rojelio Ferrer on 09-18-2024 Urea nitrogen/Creatinine [Mass ratio] 15.7 mg/mg 10-20 [facility] Basophil percentageOrdered B y: Rojelio Ferrer on 09-18-2024 Basophils/100 WBC (Bld) 1.0 % 0-1 [facility] Bilirubin Test strip Ql (U)O rdered By: Rojelio Ferrer on 09-18-2024 Bilirubin Ql (U) Negative Negative [facility] Carbon dioxide, total [Moles /volume] in Central venous bloodOrdered By: Rojelio Ferrer on 09-18-2024 CO2 [Moles/Vol] 21.7 mmol/L 21.0-32.0 [facility] Chloride assayOrdered By: Matheus Ferrer on 09-18-2024 Chloride [Moles/Vol] 100 mmol/L 98-108 [facility] Eosinophil percentageOrdered By: Rojelio Ferrer on 09-18-2024 Eosinophils/100 WBC (Bld) 0.6 % 0-5 [facility] Erythrocyte distribution wid th ratioOrdered By: Rojelio Ferrer on 09-18-2024 Erythrocyte distribution width (RBC) [Ratio] 13.1 % 11.6-14.6 [facility] Erythrocyte distribution wid th standard deviationOrdered By: Rojelio Ferrer on 09-18-2024 Erythrocyte distribution width (RBC) [Ratio] 42.5 fl 35.1-43.9 [facility] Glomerular filtration rate ( GFR) estimation/1.73 sq m using serum, plasma, or whole bOrdered By: Rojelio Ferrer on 09-18-2024 GFR/1.73 sq M.predicted among non-blacks MDRD (S/P/Bld) [Vol rate/Area] 47 mL/min/{1.73_m2} Low >60 [facility] Comment on above: mL/min/1.73m2 CKD-EP I Creatinine Equation (2020) Hematocrit Auto (Bld) [Volum e fraction]Ordered By: Rojelio Ferrer on 09-18-2024 Hematocrit (Bld) [Volume fraction] 43.2 % 37-47 [facility] Hemoglobin measurementOrdere d By: Rojelio Ferrer on 09-18-2024 Hemoglobin (Bld) [Mass/Vol] 14.8 g/dL 12.0-15.0 [facility] Immature granulocytes/100 WB C Auto (Bld)Ordered By: Rojelio Ferrer 09-18-2024 Immature granulocytes/100 WBC (Bld) 0.400 % 0.0-0.9 [facility] Comment on above: IG% - Immature Granu locytes (promyelocytes, myelocytes and metamyelocytes) > 1% indicates that a LEFT SHIFT is Present. International normalized rat io (INR) calculationOrdered By: Rojelio Ferrer on 09-18-2024 INR Coag (Bld) [Relative time] 1.0 {INR} [facility] Ketones Test strip Ql (U)Ord ered By: Rojelio Ferrer 09-18-2024 Ketones Ql (U) Negative Negative [facility] MCV (mean corpuscular volume ) determinationOrdered By: Rojelio Ferrer on 09-18-2024 MCV (RBC) [Entitic vol] 88.3 fL 81-99 [facility] Mean corpuscular hemoglobin (MCH) determinationOrdered By: Rojelio Ferrer 09-18-2024 MCH (RBC) [Entitic mass] 30.3 pg 27.0-32.0 [facility] Mean corpuscular hemoglobin concentration (MCHC) determinationOrdered By: Rojelio Ferrer on 09-18-2024 MCHC (RBC) [Mass/Vol] 34.3 g/dL 32-36 [facility] Mean platelet volume determi nationOrdered By: Rojelio Ferrer on 09-18-2024 Platelet mean volume (Bld) [Entitic vol] 10.1 fL 6.2-12.0 [facility] Microscopic analysis of urin e for red blood cells (RBC)Ordered By: Rojelio Ferrer on 09-18-2024 Microscopic analysis of urine for red blood cells (RBC) 0-5 SEEN /hpf 0-5 [facility] Monocyte percentageOrdered B y: Rojelio Ferrer on 09-18-2024 Monocytes/100 WBC (Bld) 5.7 % 0-10 [facility] Mucus LM Ql (Urine sed)Order ed By: Rojelio Ferrer on 09-18-2024 Mucus Ql (Urine sed) 0 SEEN /hpf [facility] Neutrophil percentageOrdered By: Rojelio Ferrer on 09-18-2024 Neutrophils/100 WBC (Bld) 73.1 % High 47-70 [facility] Nitrite Test strip Ql (U)Ord ered By: Rojelio Ferrer on 09-18-2024 Nitrite Ql (U) Negative Negative [facility] Nucleated red blood cell per centageOrdered By: Rojelio Ferrer on 09-18-2024 Nucleated RBC/100 WBC (Bld) [Ratio] 0 % 0-5 [facility] Platelet countOrdered By: Matheus Ferrer on 09-18-2024 Platelets (Bld) [#/Vol] 346 10*3/uL 150-450 [facility] Potassium measurement (mass/ volume)Ordered By: Rojelio Ferrer on 09-18-2024 Potassium (Unsp spec) [Mass/Vol] 3.9 mmol/L 3.3-5.1 [facility] Protein Test strip Ql (U)Ord ered By: Rojelio Ferrer on 09-18-2024 Protein Ql (U) 15 mg/dl High Negative [facility] Prothrombin timeOrdered By: Rojelio Ferrer on 09-18-2024 PT Coag (PPP) [Time] 13.7 s 11.7-14.9 [facility] RBC Auto (Bld) [#/Vol]Ordere d By: Rojelio Ferrer on 09-18-2024 RBC (Bld) [#/Vol] 4.89 10*6/uL 4.2-5.4 [facility] Serum creatinine measurement (mass/volume)Ordered By: Rojelio Ferrer on 09-18-2024 Creatinine [Mass/Vol] 1.22 mg/dL High 0.70-1.20 [facility] Serum glucose measurement (m ass/volume)Ordered By: Rojelio Ferrer on 09-18-2024 Glucose [Mass/Vol] 165 mg/dL High 70-99 [facility] Serum or plasma calcium chandler urement (mass/volume)Ordered By: Rojelio Ferrer on 09-18-2024 Calcium [Mass/Vol] 9.5 mg/dL 7.6-11.0 [facility] Serum or plasma urea nitroge n measurement (mass/volume)Ordered By: Rojelio Ferrer on 09-18-2024 Urea nitrogen [Mass/Vol] 19 mg/dL 4-19 [facility] Sodium levelOrdered By: Rojelio Ferrer on 09-18-2024 Sodium [Moles/Vol] 138 mmol/L 133-145 [facility] Squamous epithelial cells de tection in urine sediment by light microscopyOrdered By: Rojelio Ferrer on 09-18-2024 Epithelial cells.squamous LM Ql (Urine sed) 0-5 SEEN /hpf 5-10 [facility] Transitional cells detection in urine sediment by light microscopyOrdered By: Rojelio Ferrer on 09-18-2024 Transitional cells LM Ql (Urine sed) 0-5 SEEN /hpf 0-5 [facility] Urine clarityOrdered By: Katalina Ferrer on 09-18-2024 Clarity (U) Clear Clear [facility] Urine color determinationOrd ered By: Rojelio Ferrer on 09-18-2024 Color (U) Yellow Yellow [facility] Urine glucose detectionOrder ed By: Rojelio Ferrer on 09-18-2024 Glucose Ql (U) Normal mg/dl Normal [facility] Urine leukocyte esterase det ection by dipstickOrdered By: Rojelio Ferrer on 09-18-2024 Leukocyte esterase Test strip Ql (U) Negative Negative [facility] Urine pHOrdered By: Rojelio omer on 09-18-2024 pH (U) 6.0 [pH] 5.0 - 8.0 [facility] Urine sediment bacteria coun t by microscopy (number/high power field)Ordered By: Rojelio Ferrer on 09-18-2024 Bacteria LM.HPF (Urine sed) [#/Area] 1 /[HPF] None Seen [facility] Urine specific gravity measu rementOrdered By: Rojelio Ferrer on 09-18-2024 Specific gravity (U) [Rel density] 1.015 1.002-1.030 [facility] Urine urobilinogen measureme ntOrdered By: Rojelio Ferrer on 09-18-2024 Urobilinogen Ql (U) Normal mg/dl Normal [facility] White blood cell (WBC) count Ordered By: Rojelio Ferrer on 09-18-2024 WBC (Bld) [#/Vol] 12.6 10*3/uL High 4.4-11.0 [facility] White blood cell countOrdere d By: Rojelio Ferrer on 09-18-2024 White blood cell count 0-5 SEEN /hpf 0-5 [facility] Renal Artery Duplex Ultrasou ndon 09-17-2024 Renal Artery Duplex Ultrasound [facility] [address] [place] [address] Renal Artery Duplex Ultrasound 09/17/24 0856 MR#: [id number] Acct: [id number] Name: MODESTA MCDANIELS Rep #: [id number] : 1955 69 From: Rojelio Dean MD Attending Dr: Mai Beckham LINTING MACHINE OPERATOR-C Status: REG CLI Ordering Dr: Mai Beckham LINTING MACHINE OPERATOR-C Date: 09/17/24 Location: CVS Sex: F C Admitted: Reason For Study Reason For Study: CKD Right Renal Artery Left Renal Artery Right renal artery ostium 207.8/41.8 Left renal artery ostium 151/21.7 RSV/EDV. PSV/EDV. Right renal artery proximal 166.9/14.9 Left renal artery proximal PSV/EDV PSV/EDV. 126.3/19 . Right renal artery mid 157.3/20 PSV/EDV. Left renal artery mid 181.3/24.5 Right renal artery distal 132.3/22.1 PSV/EDV . PSV/EDV. Left renal artery distal 111.9/21.2 Right RAR 3.72. PSV/EDV. Right Renal Parenchyma Left RAR 3.24. Upper Pole Medula 41.5/8 PSV/EDV. Left Renal Parenchyma Right upper pole medulla EDR 0.2 . Left upper pole medulla 48.6/10.2 Right upper pole medulla R.I. 0.81 . PSV/EDV . Upper Kyler Cortx 24.5/4.2 PSV/EDV. Left upper pole medulla EDR 0.2 . Right upper pole cortex EDR 0.2 . Left upper pole medulla R.I. 0.79 . Right upper pole cortex R.I. 0.83 . UP Cortex 31.2/9.3 PSV/EDV. Right lower Pole medulla 35.5/6.4 Left upper pole cortex EDR 0.3 . PSV/EDV . Left upper pole cortex R.I. 0.70 . Right lower pole medulla EDR 0.2 . Left lower Pole medulla 44.9/8.4 Right lower pole medulla R.I. 0.82 . PSV/EDV . Lower Pole Cortex 26.2/4.2 PSV/EDV. Left lower pole medulla EDR 0.2 . Right lower pole cortex EDR 0.2 . Left lower pole medulla R.I. 0.81 . Right lower pole cortex R.I. 0.84 . Lower Pole Cortx 27.6/8.4 PSV/EDV. Right Renal Hilar Left lower pole cortex EDR 0.3 . Right Hilar avg 73.6/12.4 PSV/EDV. Left lower pole cortex R.I. 0.70 . Right hilar acceleration time 40 m/sec. Left Renal Hilar Right Renal Dimensions LT Hilar avg 57.3/11.9 PSV/EDV . Right kidney size 8.91 cm . Left hilar acceleration time 20 m/sec. Right cortical dimension 1.30 cm . Left Renal Dimensions Left kidney size 9.34 cm . Left cortical dimension 1.32 cm . Aorta Proximal abdominal aorta 1.25 x 1.27 cm . Proximal abdominal aorta peak systolic velocity is 55.9 cm/sec . Distal abdominal aorta 1.12 x 1.19 cm . Distal abdominal aorta peak systolic velocity is 36.7 cm/sec . VL/Renal Artery Duplex Ultrasound Interpretation Summary Right renal artery patent with > 60% stenosis. Left renal artery patent with < 60% stenosis. Right renal vein patent. Left renal vein patent. Right kidney diminshed in size. Left kidney normal in size. __ Ordering Physician: Mai Beckham Referring Physician: Mai Beckham Performed By: Sharifa Moses RVT 09/17/24 1305 Date Rojelio Dean MD CC: Mai [facility] LINTING MACHINE OPERATOR-C Bhavani Date Dictated: 09/17/24 0856 Date Transcribed: 09/17/24 1305 Yarn Sorter: Signed Normal [facility] Absolute lymphocyte countOrd ered By: Mai Beckham on 08-29-2024 Lymphocytes Auto (Unsp spec) [#/Vol] 2.10 10*3/uL 0.83-4.51 [facility] Absolute neutrophil countOrd ered By: Mai Beckham on 08-29-2024 Neutrophils (Bld) [#/Vol] 9.8 10*3/uL High 2.0-7.7 [facility] Anion gap in Serum or Plasma Ordered By: Mai Beckham on 08-29-2024 Anion gap [Moles/Vol] 14 mmol/L 5-15 [facility] Automated lymphocyte count a s percentage of total leukocytesOrdered By: Mai Beam on 08-29-2024 Lymphocytes/100 WBC Auto (Unsp spec) 16.3 % Low 19-41 [facility] BUN/creatinine ratioOrdered By: Zebulun Beam on 08-29-2024 Urea nitrogen/Creatinine [Mass ratio] 7.9 mg/mg Low 10-20 [facility] Basophil percentageOrdered B y: Zebulun Beam on 08-29-2024 Basophils/100 WBC (Bld) 0.8 % 0-1 [facility] Bilirubin, totalOrdered By: Zebulun Beam on 08-29-2024 Bilirubin [Mass/Vol] 0.41 mg/dL 0.00-1.30 [facility] CBC W/Diff, Automatedon 08-06 Absolute Lymph 2.10 X10 3/uL Normal 0.83-4.51 [facility] Comment on above: Performed By: #### L 500.4100, L100.0100, L501.9520, L500.4050 ####[facility] [address] [place], [address] Absolute Neut 9.8 X10 3/uL High 2.0-7.7 [facility] Comment on above: Performed By: #### L 500.4100, L100.0100, L501.9520, L500.4050 ####[facility] [address] [place], [address] Basophils/100 WBC (Bld) 0.8 % Normal 0-1 [facility] Comment on above: Performed By: #### L 500.4100, L100.0100, L501.9520, L500.4050 ####[facility] [address] [place], [address] Eosinophils/100 WBC (Bld) 0.5 % Normal 0-5 [facility] Comment on above: Performed By: #### L 500.4100, L100.0100, L501.9520, L500.4050 ####[facility] [address] [place], [address] Erythrocyte distribution width (RBC) [Ratio] 13.5 % Normal 11.6-14.6 [facility] Comment on above: Performed By: #### L 500.4100, L100.0100, L501.9520, L500.4050 ####[facility] [address] [place], [address] Hematocrit (Bld) [Volume fraction] 42.3 % Normal 37-47 [facility] Comment on above: Performed By: #### L 500.4100, L100.0100, L501.9520, L500.4050 ####[facility] [address] [place], [address] Hemoglobin (Bld) [Mass/Vol] 14.1 g/dL Normal 12.0-15.0 [facility] Comment on above: Performed By: #### L 500.4100, L100.0100, L501.9520, L500.4050 ####[facility] [address] [place], [address] IG% 0.200 Normal 0.0-0.9 [facility] Comment on above: Result Comment: IG% - Immature Granulocytes (promyelocytes, myelocytes and metamyelocytes) > 1% indicates that a LEFT SHIFT is Present. Performed By: #### L 500.4100, L100.0100, L501.9520, L500.4050 ####[facility] [address] [place], [address] Lymphocytes/100 WBC (Bld) 16.3 % Low 19-41 [facility] Comment on above: Performed By: #### L 500.4100, L100.0100, L501.9520, L500.4050 ####[facility] [address] [place], [address] MCH (RBC) [Entitic mass] 30.2 pg Normal 27.0-32.0 [facility] Comment on above: Performed By: #### L 500.4100, L100.0100, L501.9520, L500.4050 ####[facility] [address] [place], [address] MCHC (RBC) [Mass/Vol] 33.3 g/dL Normal 32-36 [facility] Comment on above: Performed By: #### L 500.4100, L100.0100, L501.9520, L500.4050 ####[facility] [address] [place], [address] MCV (RBC) [Entitic vol] 90.6 fL Normal 81-99 [facility] Comment on above: Performed By: #### L 500.4100, L100.0100, L501.9520, L500.4050 ####[facility] [address] [place], [address] Monocytes/100 WBC (Bld) 6.1 % Normal 0-10 [facility] Comment on above: Performed By: #### L 500.4100, L100.0100, L501.9520, L500.4050 ####[facility] [address] [place], [address] Neutrophils/100 WBC (Bld) 76.1 % High 47-70 [facility] Comment on above: Performed By: #### L 500.4100, L100.0100, L501.9520, L500.4050 ####[facility] [address] [place], [address] Nucleated RBC (Bld) [#/Vol] 0 10*3/uL Normal 0-5 [facility] Comment on above: Performed By: #### L 500.4100, L100.0100, L501.9520, L500.4050 ####[facility] [address] [place], [address] Platelet mean volume (Bld) [Entitic vol] 10.9 fL Normal 6.2-12.0 [facility] Comment on above: Performed By: #### L 500.4100, L100.0100, L501.9520, L500.4050 ####[facility] [address] [place], [address] Platelets (Bld) [#/Vol] 258 10*3/uL Normal 150-450 [facility] Comment on above: Performed By: #### L 500.4100, L100.0100, L501.9520, L500.4050 ####[facility] [address] [place], [address] RBC (Bld) [#/Vol] 4.67 10*6/uL Normal 4.2-5.4 [facility] Comment on above: Performed By: #### L 500.4100, L100.0100, L501.9520, L500.4050 ####[facility] [address] [place], [address] RDW SD 45.0 fl High 35.1-43.9 [facility] Comment on above: Performed By: #### L 500.4100, L100.0100, L501.9520, L500.4050 ####[facility] [address] [place], [address] WBC (Bld) [#/Vol] 12.9 10*3/uL High 4.4-11.0 [facility] Comment on above: Performed By: #### L 500.4100, L100.0100, L501.9520, L500.4050 ####[facility] [address] [place], [address] Calculated very low density lipoprotein (VLDL) cholesterol measurementOrdered By: Mai Beckham on 08-29-2024 Calculated very low density lipoprotein (VLDL) cholesterol measurement 29 mg/dL 5-40 [facility] Carbon dioxide, total [Moles /volume] in Central venous bloodOrdered By: Mai Beckham on 08-29-2024 CO2 [Moles/Vol] 23.8 mmol/L 21.0-32.0 [facility] Chloride assayOrdered By: Warren Beckham on 08-29-2024 Chloride [Moles/Vol] 99 mmol/L 98-108 [facility] Comprehensive Metabolic Prof ilon 08-29-2024 Albumin [Mass/Vol] 4.0 g/dL Normal 3.4-4.8 [facility] Comment on above: Performed By: #### L 500.4100, L100.0100, L501.9520, L500.4050 ####[facility] [address] [place], [address] Albumin/Globulin [Mass ratio] 1.3 {ratio} Normal 0.9-2.4 [facility] Comment on above: Performed By: #### L 500.4100, L100.0100, L501.9520, L500.4050 ####[facility] [address] [place], [address] ALK PHOS 80 U/L Normal 35-104 [facility] Comment on above: Performed By: #### L 500.4100, L100.0100, L501.9520, L500.4050 ####[facility] [address] [place], [address] ALT [Catalytic activity/Vol] 15 U/L Normal <=34 [facility] Comment on above: Performed By: #### L 500.4100, L100.0100, L501.9520, L500.4050 ####[facility] [address] [place], [address] AST [Catalytic activity/Vol] 18 U/L Normal <=31 [facility] Comment on above: Performed By: #### L 500.4100, L100.0100, L501.9520, L500.4050 ####[facility] [address] [place], [address] Bilirubin [Mass/Vol] 0.41 mg/dL Normal 0.00-1.30 [facility] Comment on above: Performed By: #### L 500.4100, L100.0100, L501.9520, L500.4050 ####[facility] [address] [place], [address] BUN/CRE 7.9 RATIO Low 10-20 [facility] Comment on above: Performed By: #### L 500.4100, L100.0100, L501.9520, L500.4050 ####[facility] [address] [place], [address] Calcium [Mass/Vol] 9.3 mg/dL Normal 7.6-11.0 [facility] Comment on above: Performed By: #### L 500.4100, L100.0100, L501.9520, L500.4050 ####[facility] [address] [place], [address] Chloride [Moles/Vol] 99 mmol/L Normal 98-108 [facility] Comment on above: Performed By: #### L 500.4100, L100.0100, L501.9520, L500.4050 ####[facility] [address] [place], [address] CO2 [Moles/Vol] 23.8 mmol/L Normal 21.0-32.0 [facility] Comment on above: Performed By: #### L 500.4100, L100.0100, L501.9520, L500.4050 ####[facility] [address] [place], [address] Creatinine [Mass/Vol] 1.14 mg/dL Normal 0.70-1.20 [facility] Comment on above: Performed By: #### L 500.4100, L100.0100, L501.9520, L500.4050 ####[facility] [address] [place], [address] GAP 14 Normal 5-15 [facility] Comment on above: Performed By: #### L 500.4100, L100.0100, L501.9520, L500.4050 ####[facility] [address] [place], [address] GFR/1.73 sq M.predicted among non-blacks MDRD (S/P/Bld) [Vol rate/Area] 51 mL/min/{1.73_m2} Low >60 [facility] [facility] Comment on above: Result Comment: mL/m in/1.73m2 CKD-EPI Creatinine Equation (2020) Performed By: #### L 500.4100, L100.0100, L501.9520, L500.4050 ####[facility] [address] [place], [address] Globulin (S) [Mass/Vol] 3.2 g/dL Normal 2.2-4.2 [facility] Comment on above: Performed By: #### L 500.4100, L100.0100, L501.9520, L500.4050 ####[facility] [address] [place], [address] Glucose [Mass/Vol] 183 mg/dL High 70-99 [facility] Comment on above: Performed By: #### L 500.4100, L100.0100, L501.9520, L500.4050 ####[facility] [address] [place], [address] Potassium [Moles/Vol] 4.0 mmol/L Normal 3.3-5.1 [facility] Comment on above: Performed By: #### L 500.4100, L100.0100, L501.9520, L500.4050 ####[facility] [address] [place], [address] Sodium [Moles/Vol] 137 mmol/L Normal 133-145 [facility] Comment on above: Performed By: #### L 500.4100, L100.0100, L501.9520, L500.4050 ####[facility] [address] [place], [address] T PROT 7.2 g/dL Normal 5.9-8.4 [facility] Comment on above: Performed By: #### L 500.4100, L100.0100, L501.9520, L500.4050 ####[facility] [address] [place], [address] Urea nitrogen [Mass/Vol] 9 mg/dL Normal 4-19 [facility] Comment on above: Performed By: #### L 500.4100, L100.0100, L501.9520, L500.4050 ####[facility] [address] [place], [address] Eosinophil percentageOrdered By: Zebulun Beam on 08-29-2024 Eosinophils/100 WBC (Bld) 0.5 % 0-5 [facility] Erythrocyte distribution wid th ratioOrdered By: Zebulun Beam on 08-29-2024 Erythrocyte distribution width (RBC) [Ratio] 13.5 % 11.6-14.6 [facility] Erythrocyte distribution wid th standard deviationOrdered By: Zebulun Beam on 08-29-2024 Erythrocyte distribution width (RBC) [Ratio] 45.0 fl High 35.1-43.9 [facility] Glomerular filtration rate ( GFR) estimation/1.73 sq m using serum, plasma, or whole bOrdered By: Zebulun Beam on 08-29-2024 GFR/1.73 sq M.predicted among non-blacks MDRD (S/P/Bld) [Vol rate/Area] 51 mL/min/{1.73_m2} Low >60 [facility] Comment on above: mL/min/1.73m2 CKD-EP I Creatinine Equation (2020) Hematocrit Auto (Bld) [Volum e fraction]Ordered By: Mai Beckham on 08-29-2024 Hematocrit (Bld) [Volume fraction] 42.3 % 37-47 [facility] Hemoglobin measurementOrdere d By: Mai Beckham on 08-29-2024 Hemoglobin (Bld) [Mass/Vol] 14.1 g/dL 12.0-15.0 [facility] Immature granulocytes/100 WB C Auto (Bld)Ordered By: Mai Beckham on 08-29-2024 Immature granulocytes/100 WBC (Bld) 0.200 % 0.0-0.9 [facility] Comment on above: IG% - Immature Granu locytes (promyelocytes, myelocytes and metamyelocytes) > 1% indicates that a LEFT SHIFT is Present. LDL calc ser/plasOrdered By: Mai Beckham on 08-29-2024 Cholesterol in LDL [Mass/Vol] 80 mg/dL [facility] Comment on above: Rctqlbsdul=729-638 m g/dL & Higher Aqzu=604 mg/dL or greater Laboratory - Chemistry and C hemistry - challengeOrdered By: Mai Beckham on 08-29-2024 AST [Catalytic activity/Vol] 18 U/L <32 [facility] Lipid Profileon 08-29-2024 CHOL:HDL 2.98 Normal [facility] Comment on above: Performed By: #### L 500.4100, L100.0100, L501.9520, L500.4050 ####[facility] [address] [place], [place], [id number] Cholesterol [Mass/Vol] 164 mg/dL Normal <=200 [facility] Comment on above: Result Comment: Chol esterol level, Desirable <200 mg/dL Borderline high cholesterol 200-239 mg/dL High cholesterol >=240 mg/dL Recommendations of the NCEP Adult Treatment Panel for the following risk-cutoff thresholds for the [place] population. Performed By: #### L 500.4100, L100.0100, L501.9520, L500.4050 ####[facility] [address] [place], [address] Cholesterol in HDL [Mass/Vol] 55 mg/dL Normal [facility] Comment on above: Result Comment: Aby onal Cholesterol Education Program (NCEP) guidelines: <40 mg/dL: Low HDL-cholesterol (major risk factor for CHD) >= 60 mg/dL: High HDL-cholesterol (negative risk factor for CHD) HDL-cholesterol is affected by a number of factors, e.g. smoking, exercise, hormones, sex and age. Performed By: #### L 500.4100, L100.0100, L501.9520, L500.4050 ####[facility] [address] [place], [address] Cholesterol in LDL [Mass/Vol] 80 mg/dL Normal [facility] Comment on above: Result Comment: Bord zxjbnm=606-335 mg/dL Higher Hzfw=730 mg/dL or greater Performed By: #### L 500.4100, L100.0100, L501.9520, L500.4050 ####[facility] [address] [place], [address] Cholesterol in VLDL [Mass/Vol] 29 mg/dL Normal 5-40 [facility] Comment on above: Performed By: #### L 500.4100, L100.0100, L501.9520, L500.4050 ####[facility] [address] [place], [address] Triglyceride [Mass/Vol] 144 mg/dL Normal [facility] Comment on above: Result Comment: The drugs N-Acetylcysteine and Metamizole may falsely depress this assay. Normal range: <150 mg/dL Borderline High: 150-199 mg/dL High: 200-499 mg/dL Very High: >500 mg/dL Performed By: #### L 500.4100, L100.0100, L501.9520, L500.4050 ####[facility] [address] [place], [address] MCV (mean corpuscular volume ) determinationOrdered By: Zebulun Beam on 08-29-2024 MCV (RBC) [Entitic vol] 90.6 fL 81-99 [facility] Mean corpuscular hemoglobin (MCH) determinationOrdered By: Zebulun Beam on 08-29-2024 MCH (RBC) [Entitic mass] 30.2 pg 27.0-32.0 [facility] Mean corpuscular hemoglobin concentration (MCHC) determinationOrdered By: Zebulun Beam on 08-29-2024 MCHC (RBC) [Mass/Vol] 33.3 g/dL 32-36 [facility] Mean platelet volume determi nationOrdered By: Zebulun Beam on 08-29-2024 Platelet mean volume (Bld) [Entitic vol] 10.9 fL 6.2-12.0 [facility] Monocyte percentageOrdered B y: Zebulun Beam on 08-29-2024 Monocytes/100 WBC (Bld) 6.1 % 0-10 [facility] Neutrophil percentageOrdered By: Zebulun Beam on 08-29-2024 Neutrophils/100 WBC (Bld) 76.1 % High 47-70 [facility] Nucleated red blood cell per centageOrdered By: Zebulun Beam on 08-29-2024 Nucleated RBC/100 WBC (Bld) [Ratio] 0 % 0-5 [facility] Platelet countOrdered By: Warren lanierun Beam on 08-29-2024 Platelets (Bld) [#/Vol] 258 10*3/uL 150-450 [facility] Potassium measurement (mass/ volume)Ordered By: Zebulun Beam on 08-29-2024 Potassium (Unsp spec) [Mass/Vol] 4.0 mmol/L 3.3-5.1 [facility] RBC Auto (Bld) [#/Vol]Ordere d By: Zebulun Beam on 08-29-2024 RBC (Bld) [#/Vol] 4.67 10*6/uL 4.2-5.4 [facility] Screening total cholesterol/ high density lipoprotein (HDL) cholesterol ratioOrdered By: Mai Beckham on 08-29-2024 Cholesterol.total/Cholest andrei in HDL [Mass ratio] 2.98 {ratio} [facility] Serum creatinine measurement (mass/volume)Ordered By: Mai Beckham on 08-29-2024 Creatinine [Mass/Vol] 1.14 mg/dL 0.70-1.20 [facility] Serum globulin measurementOr dered By: Mai Beckham on 08-29-2024 Globulin (S) [Mass/Vol] 3.2 g/dL 2.2-4.2 [facility] Serum glucose measurement (m ass/volume)Ordered By: Mai Beckham on 08-29-2024 Glucose [Mass/Vol] 183 mg/dL High 70-99 [facility] Serum or plasma alanine shah otransferase (ALT) measurementOrdered By: Mai Beckham on 08-29-2024 ALT [Catalytic activity/Vol] 15 U/L <35 [facility] Serum or plasma albumin chandler urement (mass/volume)Ordered By: Mai Beckham on 08-29-2024 Albumin [Mass/Vol] 4.0 g/dL 3.4-4.8 [facility] Serum or plasma albumin/glob ulin mass ratioOrdered By: Mai Beckham on 08-29-2024 Albumin/Globulin [Mass ratio] 1.3 {ratio} 0.9-2.4 [facility] Serum or plasma alkaline kathy sphatase measurementOrdered By: Mai Beckham on 08-29-2024 ALP [Catalytic activity/Vol] 80 U/L 35-104 [facility] Serum or plasma calcium chandler urement (mass/volume)Ordered By: Mai Beckham on 08-29-2024 Calcium [Mass/Vol] 9.3 mg/dL 7.6-11.0 [facility] Serum or plasma cholesterol in HDL measurement (mass/volume)Ordered By: Mai Beckham on 08-29-2024 Cholesterol in HDL [Mass/Vol] 55 mg/dL >40 [facility] Comment on above: National Cholesterol Education Program (NCEP) guidelines:<40 mg/dL: Low HDL-cholesterol (major risk factor for CHD)>= 60 mg/dL: High HDL-cholesterol (negative risk factor for CHD)HDL-cholesterol is affected by a number of factors, e.g. smoking, exercise, hormones, sex and age. Serum or plasma cholesterol measurement (mass/volume)Ordered By: Mai Beckham on 08-29-2024 Cholesterol [Mass/Vol] 164 mg/dL <201 [facility] Comment on above: Cholesterol level, D esirable <200 mg/dLBorderline high cholesterol 200-239 mg/dLHigh cholesterol >=240 mg/dLRecommendations of the NCEP Adult Treatment Panel for the following risk-cutoff thresholds for the [place] population. Serum or plasma urea nitroge n measurement (mass/volume)Ordered By: Mai Beckham on 08-29-2024 Urea nitrogen [Mass/Vol] 9 mg/dL 4-19 [facility] Sodium levelOrdered By: Mallorie Beckham on 08-29-2024 Sodium [Moles/Vol] 137 mmol/L 133-145 [facility] TSH DL <= 0.005 mIU/L QnOrde red By: Mai Beckham on 08-29-2024 TSH Qn 1.600 uIU/mL 0.300-4.200 [facility] Thyroid Stim Hormone (TSH)on 08-29-2024 TSH 1.600 uIU/mL Normal 0.300-4.200 [facility] Comment on above: Performed By: #### L 500.4100, L100.0100, L501.9520, L500.4050 ####[facility] [address] [place], [place], [address] Total proteinOrdered By: Osito Beckham on 08-29-2024 Protein [Mass/Vol] 7.2 g/dL 5.9-8.4 [facility] Triglycerides measurementOrd ered By: Mai Beckham on 08-29-2024 Triglyceride [Mass/Vol] 144 mg/dL <199 [facility] Comment on above: The drugs N-Acetylcy steine and Metamizole may falsely depress this assay. Normal range: <150 mg/dLBorderline High: 150-199 mg/dLHigh: 200-499 mg/dLVery High: >500 mg/dL White blood cell (WBC) count Ordered By: Mai Beckham on 08-29-2024 WBC (Bld) [#/Vol] 12.9 10*3/uL High 4.4-11.0 [facility] 12 Lead EKGon 08-19-2024 12 Lead EKG [facility] Cardiovascular Services [address] [place] [address] 12 Lead EKG 08/19/24 1137 MR#: [id number] Acct: [id number] Name: MODESTA MCDANIELS Rep #: [id number] : 1955 69 From: Janes Baeza MD Attending Dr: Status: DEP ER Ordering Dr: Rojelio Ferrer DO Date: 08/19/24 Location: ED Sex: F C Admitted: Test Reason : GENERAL ILLNESS Blood Pressure : */* mmHG Vent. Rate : 103 BPM Atrial Rate : 103 BPM P-R Int : 156 ms QRS Dur : 78 ms QT Int : 332 ms P-R-T Axes : 22 30 47 degrees QTcB Int : 434 ms Sinus tachycardia Low voltage QRS Borderline ECG Confirmed by CARL DOTSON, JANES ([id number]), science editor DANYEL DELACRUZ ([id number]) on 08/21/2024 7:44:13 AM Referred By: ES Confirmed By: JANES BAEZA MD 08/21/24 0744 Date Janes Baeza MD CC: Dr. Rojelio Ferrer DO; No Primary Care Physician Signed Normal [facility] Absolute lymphocyte countOrd ered By: Rojelio Ferrer on 08-19-2024 Lymphocytes Auto (Unsp spec) [#/Vol] 2.19 10*3/uL 0.83-4.51 [facility] Absolute neutrophil countOrd ered By: Rojelio Ferrer on 08-19-2024 Neutrophils (Bld) [#/Vol] 4.9 10*3/uL 2.0-7.7 [facility] Activated partial thrombopla stin time (aPTT) in platelet poor plasma by coagulation aOrdered By: Rojelio Frerer on 08-19-2024 aPTT Coag (PPP) [Time] 29.1 s 24.1-36.2 [facility] Anion gap in Serum or Plasma Ordered By: Rojelio Ferrer on 08-19-2024 Anion gap [Moles/Vol] 14 mmol/L 07-19 [facility] Automated lymphocyte count a s percentage of total leukocytesOrdered By: Rojelio Ferrer on 08-19-2024 Lymphocytes/100 WBC Auto (Unsp spec) 28.6 % [facility] BUN/creatinine ratioOrdered By: Rojelio Ferrer on 08-19-2024 Urea nitrogen/Creatinine [Mass ratio] 11.6 mg/mg 12-24 [facility] Basic Metabolic Profile (BMP )on 08-19-2024 BUN/CRE 11.6 RATIO Normal 12-24 [facility] Comment on above: Performed By: #### L 500.2500, L501.4021, L300.3900, L300.4310, L100.0100 #### [facility] [address] [place], [address] Calcium [Mass/Vol] 9.3 mg/dL Normal 7.6-11.0 [facility] Comment on above: Performed By: #### L 500.2500, L501.4021, L300.3900, L300.4310, L100.0100 #### [facility] [address] [place], [address] Chloride [Moles/Vol] 99 mmol/L Normal 98-108 [facility] Comment on above: Performed By: #### L 500.2500, L501.4021, L300.3900, L300.4310, L100.0100 #### [facility] [address] [place], [address] CO2 [Moles/Vol] 21.7 mmol/L Normal 21.0-32.0 [facility] Comment on above: Performed By: #### L 500.2500, L501.4021, L300.3900, L300.4310, L100.0100 #### [facility] [address] [place], [address] Creatinine [Mass/Vol] 1.37 mg/dL High 0.70-1.20 [facility] Comment on above: Performed By: #### L 500.2500, L501.4021, L300.3900, L300.4310, L100.0100 #### [facility] [address] [place], [address] ECRCL 40.03 ml/min Low 50-250 [facility] Comment on above: Performed By: #### L 500.2500, L501.4021, L300.3900, L300.4310, L100.0100 #### [facility] [address] [place], [address] GAP 14 Normal 5-15 [facility] Comment on above: Performed By: #### L 500.2500, L501.4021, L300.3900, L300.4310, L100.0100 #### [facility] [address] [place], [address] GFR/1.73 sq M.predicted among non-blacks MDRD (S/P/Bld) [Vol rate/Area] 41 mL/min/{1.73_m2} Low >60 [facility] Comment on above: Result Comment: mL/m in/1.73m2 CKD-EPI Creatinine Equation (2020) Performed By: #### L 500.2500, L501.4021, L300.3900, L300.4310, L100.0100 #### [facility] [address] [place], [address] Glucose [Mass/Vol] 210 mg/dL High 70-99 [facility] Comment on above: Performed By: #### L 500.2500, L501.4021, L300.3900, L300.4310, L100.0100 #### [facility] [address] [place], [address] Potassium [Moles/Vol] 4.1 mmol/L Normal 3.3-5.1 [facility] Comment on above: Performed By: #### L 500.2500, L501.4021, L300.3900, L300.4310, L100.0100 #### [facility] [address] [place], [address] Sodium [Moles/Vol] 135 mmol/L Normal 133-145 [facility] Comment on above: Performed By: #### L 500.2500, L501.4021, L300.3900, L300.4310, L100.0100 #### [facility] [address] [place], [address] Urea nitrogen [Mass/Vol] 16 mg/dL Normal 4-19 [facility] Comment on above: Performed By: #### L 500.2500, L501.4021, L300.3900, L300.4310, L100.0100 #### [facility] [address] [place], [address] Basophil percentageOrdered B y: Rojelio Ferrer on 08-19-2024 Basophils/100 WBC (Bld) 1.6 % High 0-1 [facility] CBC W/Diff, Automatedon 08-05 Absolute Lymph 2.19 X10 3/uL Normal 0.83-4.51 [facility] Comment on above: Performed By: #### L 500.2500, L501.4021, L300.3900, L300.4310, L100.0100 #### [facility] [address] [place], [address] Absolute Neut 4.9 X10 3/uL Normal 2.0-7.7 [facility] Comment on above: Performed By: #### L 500.2500, L501.4021, L300.3900, L300.4310, L100.0100 #### [facility] [address] [place], [address] Basophils/100 WBC (Bld) 1.6 % High 0-1 [facility] Comment on above: Performed By: #### L 500.2500, L501.4021, L300.3900, L300.4310, L100.0100 #### [facility] [address] [place], [address] Eosinophils/100 WBC (Bld) 0.7 % Normal 0-5 [facility] Comment on above: Performed By: #### L 500.2500, L501.4021, L300.3900, L300.4310, L100.0100 #### [facility] [address] [place], [address] Erythrocyte distribution width (RBC) [Ratio] 13.7 % Normal 11.6-14.6 [facility] Comment on above: Performed By: #### L 500.2500, L501.4021, L300.3900, L300.4310, L100.0100 #### [facility] [address] [place], [address] Hematocrit (Bld) [Volume fraction] 44.1 % Normal 37-47 [facility] Comment on above: Performed By: #### L 500.2500, L501.4021, L300.3900, L300.4310, L100.0100 #### [facility] [address] [place], [address] Hemoglobin (Bld) [Mass/Vol] 14.9 g/dL Normal 12.0-15.0 [facility] Comment on above: Performed By: #### L 500.2500, L501.4021, L300.3900, L300.4310, L100.0100 #### [facility] [address] [place], [address] IG% 0.400 Normal 0.0-0.9 [facility] Comment on above: Result Comment: IG% - Immature Granulocytes (promyelocytes, myelocytes and metamyelocytes) > 1% indicates that a LEFT SHIFT is Present. Performed By: #### L 500.2500, L501.4021, L300.3900, L300.4310, L100.0100 #### [facility] [address] [place], [address] Lymphocytes/100 WBC (Bld) 28.6 % Normal 19-41 [facility] Comment on above: Performed By: #### L 500.2500, L501.4021, L300.3900, L300.4310, L100.0100 #### [facility] [address] [place], [address] MCH (RBC) [Entitic mass] 30.2 pg Normal 27.0-32.0 [facility] Comment on above: Performed By: #### L 500.2500, L501.4021, L300.3900, L300.4310, L100.0100 #### [facility] [address] [place], [address] MCHC (RBC) [Mass/Vol] 33.8 g/dL Normal 32-36 [facility] Comment on above: Performed By: #### L 500.2500, L501.4021, L300.3900, L300.4310, L100.0100 #### [facility] [address] [place], [address] MCV (RBC) [Entitic vol] 89.5 fL Normal 81-99 [facility] Comment on above: Performed By: #### L 500.2500, L501.4021, L300.3900, L300.4310, L100.0100 #### [facility] [address] [place], [address] Monocytes/100 WBC (Bld) 5.2 % Normal 0-10 [facility] Comment on above: Performed By: #### L 500.2500, L501.4021, L300.3900, L300.4310, L100.0100 #### [facility] [address] [place], [address] Neutrophils/100 WBC (Bld) 63.5 % Normal 47-70 [facility] Comment on above: Performed By: #### L 500.2500, L501.4021, L300.3900, L300.4310, L100.0100 #### [facility] [address] [place], [address] Nucleated RBC (Bld) [#/Vol] 0 10*3/uL Normal 0-5 [facility] Comment on above: Performed By: #### L 500.2500, L501.4021, L300.3900, L300.4310, L100.0100 #### [facility] [address] [place], [address] Platelet mean volume (Bld) [Entitic vol] 10.4 fL Normal 6.2-12.0 [facility] Comment on above: Performed By: #### L 500.2500, L501.4021, L300.3900, L300.4310, L100.0100 #### [facility] [address] [place], [address] Platelets (Bld) [#/Vol] 258 10*3/uL Normal 150-450 [facility] Comment on above: Performed By: #### L 500.2500, L501.4021, L300.3900, L300.4310, L100.0100 #### [facility] [address] [place], [address] RBC (Bld) [#/Vol] 4.93 10*6/uL Normal 4.2-5.4 [facility] Comment on above: Performed By: #### L 500.2500, L501.4021, L300.3900, L300.4310, L100.0100 #### [facility] [address] [place], [address] RDW SD 44.6 fl High 35.1-43.9 [facility] Comment on above: Performed By: #### L 500.2500, L501.4021, L300.3900, L300.4310, L100.0100 #### [facility] [address] [place], [address] WBC (Bld) [#/Vol] 7.7 10*3/uL Normal 4.4-11.0 [facility] Comment on above: Performed By: #### L 500.2500, L501.4021, L300.3900, L300.4310, L100.0100 #### [facility] [address] [place] [place], [address] Carbon dioxide, total [Moles /volume] in Central venous bloodOrdered By: Rojelio Ferrer on 08-19-2024 CO2 [Moles/Vol] 21.7 mmol/L 21.0-32.0 [facility] Chest 1 Viewon 08-19-2024 Chest 1 View [facility] Imaging Services [address] [address] Chest 1 View MR#: [id number] Acct: [id number] Name: MODESTA MCDANIELS Rep #: [id number] : 1955 F 69 From: Marian Chavez nd, MD PCP: Care Physician,No Primary Status: [facility] ER Study: Chest 1 View Date of Exam: 08/19/24 Exam# [id number] Ordering Dr: Rojelio Ferrer DO PROCEDURE: CHEST 1 VIEW 08/19/2024 REASON FOR EXAM: NEURO DEFICIT, ACUTE, STROKE SUSPECTED TECHNIQUE: Frontal view of the chest. COMPARISON: None. FINDINGS: Hardware: None. Heart: The heart size is normal. Lungs: Findings of emphysema with scattered areas of scarring. No focal consolidation, pleural effusion or pneumothorax. Bones: Degenerative changes are identified within the thoracic spine. Bilateral glenohumeral joint arthrosis. RAD/Chest 1 View IMPRESSION: COPD. No acute findings. Reading Location: [id number] CC: Dr. Rojelio Ferrer, DO; No Primary Care Physician Yarn Sorter: Signed Normal [facility] Chloride assayOrdered By: Matheus Ferrer on 08-19-2024 Chloride [Moles/Vol] 99 mmol/L 98-108 [facility] Emergency Department Summary on 08-19-2024 Emergency Department Summary [facility] Medical Records Department [address] [place] [address] Emergency Department Summary 08/19/24 MR#: [id number] Acct: [id number] Name: MODESTA MCDANIELS Rep #: [id number] : 1955 69 From: Rojelio Ferrer DO PCP: Care Physician,No Primary Status:DEP ER Location: ED HPI History of Present Illness Chief Complaint: General Illness Informant: patient and family Onset/Context/Tita weiss Onset: Days (2) Context: Sudden Onset Timing: Continuous Quality: Expressive aphasia Location: Speech Worsened by: Nothing Relieved by: Nothing Narrative Narrative: Patient presents with difficulty speaking that has been constant for the past 2 days. Patient was recently treated for a dental infection. Patient was started on antibiotics which has been helping. Family states patient has been having difficulty getting words out so and saying what she wants to say for the past 2 days. Patient denies any headaches. Patient denies any nausea or vomiting. Patient denies any paresthesias or weakness. Patient denies any other symptoms. PFSH PFSH Medical History no medical history no medical history Home Medications ???Medication ???Instructions ???Recorded ???Last Taken ???Type NK 08/19/24 Unknown History Allergy/AdvReac Type Severity Reaction Status Date / Time No Known Allergies Allergy Verified 08/19/24 11:06 Family History no significant family his Surgical History no surgical history no surgical history Social History (Updated 08/19/24 @ 11:[address] Rojelio Ferrer, DO) Smoking Status: Current every day smoker tobacco type: cigarettes Smoking packs per day: 1 Smoking cigarettes per day: 20.0 ROS ROS ED Constitutional Constitutional ED: Denies chills or fever(s) Eyes Eyes: Denies blurry vision or change in vision ENT ENT ED: Denies rhinorrhea or sore throat Cardiovascular Cardiovascular: Denies chest pain or palpitations Respiratory/Chest Respiratory/Chest: Denies cough or dyspnea Gastrointestinal Gastrointestinal: Denies nausea or vomiting Genitourinary Genitourinary ED: Denies dysuria or hematuria Musculoskeletal Musculoskeletal: Denies back pain or neck pain Integumentary Denies abscess or rash Neurologic Neurologic: Denies headache(s) or weakness Allergic/Immunologi c Allergic/Immunologi c ED: Denies mouth swelling or urticaria EXAM Physical Exam Const Vital Signs: 08/19/24 11:02 08/19/24 11:04 08/19/24 11:16 Temperature 96.9 F L 96.9 F L Temperature Source Oral Oral Pulse Rate 106 H 106 H Respiratory Rate 18 18 Respiratory Pattern Normal Blood Pressure 124/92 H 124/92 H Blood Pressure Mean 102 102 Pulse Ox 99 98 Oxygen Delivery Method Room Air Room Air 08/19/24 11:20 08/19/24 11:50 08/19/24 12:20 Temperature Temperature Source Pulse Rate 100 95 Respiratory Rate 18 17 Respiratory Pattern Blood Pressure 190/66 H 158/76 H Blood Pressure Mean 107 103 Pulse Ox 98 97 Oxygen Delivery Method Room Air Room Air Room Air 08/19/24 12:30 Temperature Temperature Source Pulse Rate 96 Respiratory Rate 14 Respiratory Pattern Blood Pressure 158/76 H Blood Pressure Mean 103 Pulse Ox 100 Oxygen Delivery Method Room Air Positive well nourished and well developed General Appearance ED: well developed and NAD HEENT Reports moist mucous membranes Neck supple and no JVD Resp normal respiratory effort and clear to auscultation bilaterally Cardio regular rate and regular rhythm GI non-tender and non-distended Palpation: soft Extremity normal to inspection General Extremety ED: Negative for edema or tenderness General Extremity: Negative for edema Neuro oriented x3, CN's II-XII intact bilaterally and no sensory deficits noted Sensorium / Orientation: alert Motor Exam: strength 5/5 throughout Psych mental status grossly normal MDM MDM MDM Narrative Medical decision making narrative: Differential diagnosis includes but is not limited to stroke, electrolyte abnormality, intracranial bleeding, sepsis, dehydration, cardiac dysrhythmia, cardiac ischemia, coagulopathy, and anxiety. EKG will be obtained to assess for cardiac dysrhythmia and cardiac ischemia. CT scan of the brain will be obtained to assess for intracranial bleeding and stroke. CTA of the head and neck will be obtained to assess for large vessel occlusion and carotid stenosis. Chest x-ray will be obtained to assess for pneumonia and bronchitis. CBC will be obtained to assess for leukocytosis and anemia. Basic metabolic profile will be obtained to assess for electrolyte abnormality renal function. PT with INR and PTT will be obtained to assess for coagulopathy. Serum lactate will be obtained to assess fo (more content not included)... Normal [facility] Eosinophil percentageOrdered By: Rojelio Ferrer on 08-19-2024 Eosinophils/100 WBC (Bld) 0.7 % 0-5 [facility] Erythrocyte distribution wid th ratioOrdered By: Rojelio Ferrer on 08-19-2024 Erythrocyte distribution width (RBC) [Ratio] 13.7 % 11.6-14.6 [facility] Erythrocyte distribution wid th standard deviationOrdered By: Rojelio Ferrer on 08-19-2024 Erythrocyte distribution width (RBC) [Ratio] 44.6 fl High 35.1-43.9 [facility] Glomerular filtration rate ( GFR) estimation/1.73 sq m using serum, plasma, or whole bOrdered By: Rojelio Ferrer on 08-19-2024 GFR/1.73 sq M.predicted among non-blacks MDRD (S/P/Bld) [Vol rate/Area] 41 mL/min/{1.73_m2} Low >60 [facility] Comment on above: mL/min/1.73m2 CKD-EP I Creatinine Equation (2020) Hematocrit Auto (Bld) [Volum e fraction]Ordered By: Rojelio Ferrer on 08-19-2024 Hematocrit (Bld) [Volume fraction] 44.1 % 37-47 [facility] Hemoglobin measurementOrdere d By: Rojelio Ferrer on 08-19-2024 Hemoglobin (Bld) [Mass/Vol] 14.9 g/dL 12.0-15.0 [facility] Immature granulocytes/100 WB C Auto (Bld)Ordered By: Rojelio Ferrer on 08-19-2024 Immature granulocytes/100 WBC (Bld) 0.400 % 0.0-0.9 [facility] Comment on above: IG% - Immature Granu locytes (promyelocytes, myelocytes and metamyelocytes) > 1% indicates that a LEFT SHIFT is Present. International normalized rat io (INR) calculationOrdered By: Rojelio Ferrer on 08-19-2024 INR Coag (Bld) [Relative time] 1.1 {INR} [facility] L499.0042on 08-19-2024 Trop T High Sen Normal <=14 [facility] Comment on above: Result Comment: Canc elled via OM: Order cancelled - Patient discharged Performed By: #### L 499.0042 ####[facility] [address] [place], [address] L499.0043on 08-19-2024 Trop T High Sen Normal <=14 [facility] Comment on above: Result Comment: Canc elled via OM: Order cancelled - Patient discharged Performed By: #### L 499.0043 ####[facility] [address] [place], [address] L501.4021on 08-19-2024 Trop T High Sen < 6 Normal <=14 [facility] Comment on above: Performed By: #### L 500.2500, L501.4021, L300.3900, L300.4310, L100.0100 ####[facility] [address] [place], [address] MCV (mean corpuscular volume ) determinationOrdered By: Rojelio Ferrer on 08-19-2024 MCV (RBC) [Entitic vol] 89.5 fL 81-99 [facility] Mean corpuscular hemoglobin (MCH) determinationOrdered By: Rojelio Ferrer on 08-19-2024 MCH (RBC) [Entitic mass] 30.2 pg 27.0-32.0 [facility] Mean corpuscular hemoglobin concentration (MCHC) determinationOrdered By: Rojelio Ferrer on 08-19-2024 MCHC (RBC) [Mass/Vol] 33.8 g/dL 32-36 [facility] Mean platelet volume determi nationOrdered By: Rojelio Ferrer on 08-19-2024 Platelet mean volume (Bld) [Entitic vol] 10.4 fL 6.2-12.0 [facility] Monocyte percentageOrdered B y: Rojelio Ferrer on 08-19-2024 Monocytes/100 WBC (Bld) 5.2 % 0-10 [facility] Neutrophil percentageOrdered By: Rojelio Ferrer on 08-19-2024 Neutrophils/100 WBC (Bld) 63.5 % 47-70 [facility] Nucleated red blood cell per centageOrdered By: Rojelio Ferrer on 08-19-2024 Nucleated RBC/100 WBC (Bld) [Ratio] 0 % 0-5 [facility] Partial Thromboplast Timeon 08-19-2024 aPTT Coag (Bld) [Time] 29.1 s Normal 24.1-36.2 [facility] Comment on above: Performed By: #### L 500.2500, L501.4021, L300.3900, L300.4310, L100.0100 #### [facility] [address] [place], [place], [id number] Platelet countOrdered By: Matheus Ferrer on 08-19-2024 Platelets (Bld) [#/Vol] 258 10*3/uL 150-450 [facility] Potassium measurement (mass/ volume)Ordered By: Rojelio Ferrer on 08-19-2024 Potassium (Unsp spec) [Mass/Vol] 4.1 mmol/L 3.3-5.1 [facility] Prothrombin Time w/INRon INR Coag (PPP) [Relative time] 1.1 {INR} Normal [facility] Comment on above: Performed By: #### L 500.2500, L501.4021, L300.3900, L300.4310, L100.0100 #### [facility] [address] [place], [place], [id number] PT Coag (PPP) [Time] 14.6 s Normal 11.7-14.9 [facility] Comment on above: Performed By: #### L 500.2500, L501.4021, L300.3900, L300.4310, L100.0100 #### [facility] [address] [place], [address] Prothrombin timeOrdered By: Rojelio Ferrer on 08-19-2024 PT Coag (PPP) [Time] 14.6 s 11.7-14.9 [facility] RBC Auto (Bld) [#/Vol]Ordere d By: Rojelio Ferrer on 08-19-2024 RBC (Bld) [#/Vol] 4.93 10*6/uL 4.2-5.4 [facility] STROKE Brain/Head without Co nton 08-19-2024 STROKE Brain/Head without Cont [facility] Imaging Services [address] [place], [place] [address] STROKE Brain/Head without Cont MR#: [id number] Acct: [id number] Name: MODESTA MCDANIELS Rep #: [id number] : 1955 F 69 From: Marian Chavez nd, MD PCP: Care Physician,No Primary Status: REG ER Study: STROKE Brain/Head without Cont Date of Exam: 0 08/19/24 Exam# [id number] Ordering Dr: Rojelio Ferrer DO EXAM: STROKE BRAIN/HEAD WITHOUT CONT CLINICAL HISTORY: 69 y/o F with NEURO DEFICIT, ACUTE, STROKE SUSPECTED. COMPARISON: None. TECHNIQUE: Routine CT imaging of the head without IV contrast. Additional multiplanar reformats were obtained. Dose reduction techniques were used including intermediate exposure control (AEC),iterative reconstruction technique, and/or mA and/or KV dose adjustments based on patient's size. FINDINGS: The ventricles and subarachnoid spaces are normal for patient age. No acute intracranial hemorrhage or herniation. Small chronic ischemic type infarcts within the left frontoparietal lobe and left cerebellum. Lacunar type infarcts within the bilateral basal ganglia and left centrum semiovale. Mild scattered supratentorial white matter hypodensities. The gonzalez-white matter interfaces are otherwise maintained. The orbits, visualized paranasal sinuses and mastoids are unremarkable. No acute calvarial fracture or scalp hematoma. CT/STROKE Brain/Head without Cont IMPRESSION: 1. No acute intracranial finding. 2. Findings of chronic microvascular ischemic changes and age-related changes. Dr. Fernandez discussed these findings via telephone with Dr. Ferrer at 12:22 p.m. on 08/19/2024. Reading Location: [id number] CC: Dr. Rojelio Ferrer, ; No Primary Care Physician Yarn Sorter: Signed Normal [facility] STROKE CTA Head AND Neck W/C onon 08-19-2024 STROKE CTA Head AND Neck W/Con [facility] Imaging Services [address] [place] [id number] STROKE CTA Head AND Neck W/Con MR#: [id number] Acct: [id number] Name: MODESTA MCDANIELS Rep #: [id number] : 1955 F 69 From: Marian Chavez nd, MD PCP: Care Physician,No Primary Status: REG ER Study: STROKE CTA Head AND Neck W/Con Date of Exam: 0 08/19/24 Exam# [id number] Ordering Dr: Rojelio Ferrer DO PROCEDURE: STROKE CTA HEAD AND NECK W/CON 08/19/2024 REASON FOR EXAM: NEURO DEFICIT, ACUTE, STROKE SUSPECTED TECHNIQUE: STROKE CTA HEAD AND NECK W/CON Multiplanar and multisequence images were obtained. CONTRAST: ISOVUE 370 VOLUME: 100 mL One or more dose reduction techniques were used (e.g., Automated exposure control, adjustment of the mA and/or kV according to patient size, use of iterative reconstruction technique). RADIATION DOSE SUMMARY: CTDlvol: 100 mGy DLP: 1800 mGycm COMPARISON: Same-day noncontrast CT head. FINDINGS: See same day CT head for discussion of nonvascular findings. Visualization is significantly limited by motion artifact despite repeated imaging sequences. CTA neck: Three-vessel aortic arch with mixed calcific plaque. The origins of the bilateral vertebral arteries are widely patent. Mixed calcific plaque of the bilateral cervical carotid arteries without focal stenosis or narrowing by NASCET criteria. CTA head: Atherosclerotic plaque of the bilateral carotid siphons resulting in moderate multifocal narrowing on the right. The bilateral anterior, middle and posterior cerebral arteries are grossly patent. Visualization of the more distal arteries is limited by motion artifact. No obvious aneurysm or AVM. Major venous structures: Grossly unremarkable. Other findings: Right thyroid lobe nodules which do not meet criteria for dedicated follow-up. Multiple dental caries. Mild cervical spondylosis. Biapical emphysema. CT/STROKE CTA Head AND Neck W/Con IMPRESSION: Limited visualization due to motion artifact. No large vessel occlusion, AVM or aneurysm. Reading Location: [id number] CC: Dr. Rojelio Ferrer, DO; No Primary Care Physician Yarn Sorter: Signed Normal [facility] Serum creatinine measurement (mass/volume)Ordered By: Rojelio Ferrer on 08-19-2024 Creatinine [Mass/Vol] 1.37 mg/dL High 0.70-1.20 [facility] Serum glucose measurement (m ass/volume)Ordered By: Rojelio Ferrer on 08-19-2024 Glucose [Mass/Vol] 210 mg/dL High 70-99 [facility] Serum or plasma calcium chandler urement (mass/volume)Ordered By: Rojelio Ferrer on 08-19-2024 Calcium [Mass/Vol] 9.3 mg/dL 7.6-11.0 [facility] Serum or plasma urea nitroge n measurement (mass/volume)Ordered By: Rojelio Ferrer on 08-19-2024 Urea nitrogen [Mass/Vol] 16 mg/dL 4-19 [facility] Sodium levelOrdered By: Rojelio Ferrer on 08-19-2024 Sodium [Moles/Vol] 135 mmol/L 133-145 [facility] Troponin T.cardiac [Mass/vol ume] in Serum or Plasma by High sensitivity methodOrdered By: Rojelio Ferrer on 08-19-2024 Troponin T.cardiac High sensitivity method [Mass/Vol] < 6 ng/L <14 [facility] White blood cell (WBC) count Ordered By: Rojelio Ferrer on 08-19-2024 WBC (Bld) [#/Vol] 7.7 10*3/uL 4.4-11.0 [facility] Vital Signs Date Time Vital Sign Value Performing Clinician Paola richard 09-18-2024 20:51-0400 Body temperature 98.2 [degF] Dr. Rojelio Ferrer DO Work Phone: 5(635)[phone] [place] [address] 09-18-2024 20:51-0400 Diastolic blood pressure 81 mm[Hg] Dr. Rojelio Ferrer DO Work Phone: 0(961)536-861734 [place] [address] 09-18-2024 20:51-0400 Heart rate 101 /min Dr. Rojelio Ferrer DO Work Phone: 3(465)728-479634 [place] [address] 09-18-2024 20:51-0400 Respiratory rate 18 /min Dr. Rojelio Ferrer DO Work Phone: 8(193)171-419434 [place] [address] 09-18-2024 20:51-0400 SaO2% (BldA) [Mass fraction] 98 % Dr. Rojelio Ferrer DO Work Phone: 6(200)525-879134 [place] [address] 09-18-2024 20:51-0400 Systolic blood pressure 143 mm[Hg] Dr. Rojelio Ferrer DO Work Phone: 4(615)164-125134 [place] [address] 09-18-2024 18:38-0400 Body height 157.[address] Rojelio Ferrer DO Work Phone: 1(912)267-409534 [place] [address] 09-18-2024 18:38-0400 Body mass index (BMI) [Ratio] 36.8 kg/m2 Dr. Rojelio Ferrer DO Work Phone: 2(220)136-487858 [place] [address] 09-18-2024 18:38-0400 Body weight 91.[address] Rojelio Ferrer DO Work Phone: 1(528)986-760458 [place] [address] 08-19-2024 12:30-0400 Diastolic blood pressure 76 mm[Hg] Dr. Rojelio Ferrer DO Work Phone: 9(656)489-385234 [place] [address] 08-19-2024 12:30-0400 Heart rate 96 /min Dr. Rojelio Ferrer DO Work Phone: 7(897)021-824058 [place] [address] 08-19-2024 12:30-0400 Respiratory rate 14 /min Dr. Rojelio Ferrer DO Work Phone: [facility] 08-19-2024 12:30-0400 SaO2% (BldA) [Mass fraction] 100 % Dr. Rojelio Ferrer DO Work Phone: [facility] 08-19-2024 12:30-0400 Systolic blood pressure 158 mm[Hg] Dr. Rojelio Ferrer DO Work Phone: [facility] 08-19-2024 11:04-0400 Body temperature 96.9 [degF] Dr. Rojelio Ferrer DO Work Phone: [facility] 08-19-2024 11:02-0400 Body height 157.[address] Rojelio Ferrer DO Work Phone: [facility] 08-19-2024 11:02-0400 Body mass index (BMI) [Ratio] 37.5 kg/m2 Dr. Rojelio Ferrer DO Work Phone: [facility] 08-19-2024 11:02-0400 Body weight 93.[address] Rojelio Ferrer DO Work Phone: [facility] Encounters Encounter Date Encounter Type Care Provider Facility Start: 09-18-2024 Evaluation and management of inpatient Dr. Caleb Garcia DO -Progressive Care Unit Work Phone: Start: 09-18-[address] Rojelio Ferrer DO Work Phone: -Progressive Care Unit Start: 09-18-2024 ambulatory Zebulun Beam VSC Facili ty:[facility] Start: 09-18-2024 Patient encounter procedure Zebulun Beam LINTING MACHINE OPERATOR-C -MRI - [facility] Work Phone: Start: 09-17-2024 Non-patient / Non-visit Dr. Rojelio mae MD -[facility] Start: 09-17-2024 Patient encounter procedure Zebulun Beam LINTING MACHINE OPERATOR-C -Cardiovascular Services Work Phone: Start: 09-17-2024 ambulatory Zebulun Beam VSC Facili ty:[facility] Start: 08-29-2024 End: 08-29-[address] Rojelio Ferrer DO Work Phone: -[facility] Start: 08-29-2024 End: 08-29-2024 Patient encounter procedure Mai Beckham LINTING MACHINE OPERATOR-C -[facility] Start: 08-29-2024 End: 08-29-2024 ambulatory Zebulun Beam [facility] Facility:[facility] Start: 08-19-2024 End: 08-19-2024 Emergency department patient visit Dr. Rojelio Ferrer DO Work Phone: -Emergency Department Work Phone: Start: 08-29-2023 End: 08-29-2023 ambulatory CHRISS RIVERA Facility:[facility] Start: 08-29-2023 E-mail encounter fro m caregiver Chriss Rivera APRN.MANDARIN TEACHER Work Phone: Telemedicine Start: 08-29-2023 End: 08-29-2023 Telemedicine consultation with patient Chriss Rivera APRN.MANDARIN TEACHER Work Phone: Telemedicine Comment on above: Virtual visit Treatment not availa ble (Primary Dx) Procedures Date Procedure Procedure Detail Performing Clinician Start: 09-18-[address] Rojelio Ferrer DO Work Phone: Start: 09-18-2024 Urnls dip stick/tabl et reagent auto microscopy Dr. Rojelio Ferrer DO Work Phone: Start: 09-18-2024 MRI of brain with contrast Dr. Rojelio Ferrer DO Work Phone: Start: 08-19-2024 Plain chest X-ray Dr. Rita Ferrer DO Work Phone: Start: 08-19-[address] Rojelio Ferrer DO Work Phone: Start: 08-19-2024 CT angiography of he ad and neck Dr. Rojelio Ferrer DO Work Phone: Start: 08-19-2024 CT of head without contrast Dr. Rojelio Ferrer DO Work Phone: Plan of Treatment Date Care Activity Detail Author Start: 09-18-2024 Thyroid stimulating hormone measurement [facility] Start: 09-18-2024 Admission procedure [facility] Start: 09-18-2024 Hospital admission, emergency, from emergency room, medical nature [facility] Start: 08-19-2024 [facility] Start: 08-19-2024 Oxygen therapy [facility] Start: 08-19-2024 [facility] Start: 11-06-2023 Influenza vaccination Influenza Vaccine (Season Ended) [facility] Start: 03-07-2023 Advance Directive Discussion Advance Directive Discussion [facility] Start: 03-07-2023 Behavioral Health Screening Behavioral Health Screening [facility] Start: 11-05-2022 Covid-19 Vaccine ( season) Covid-19 Vaccine ( season) [facility] Start: 2018 Pneumococcal Vaccine: 65+ (1 of 1 - PCV) Pneumococcal Vaccine: 65+ (1 of 1 - PCV) [facility] Start: 2018 Screening for osteoporosis Bone Density Screening [facility] Start: 2013 RSV Vaccine (1 - 1-dose 60+ series) RSV Vaccine (1 - 1-dose 60+ series) [facility] Start: 2003 Shingrix Vaccine (1 of 2) Shingrix Vaccine (1 of 2) [facility] Start: 1998 Diabetes Screening Diabetes Screening [facility] Start: 1998 Lipid panel Lipid Screening [facility] Start: 1998 Screening for malignant neoplasm of colon [facility] Start: 1993 Screening for malignant neoplasm of breast Mammogram Screening [facility] Start: 1972 Urine microalbumin profile DTaP,Tdap,Td Vaccine (1 - Tdap) [facility] Start: 1971 Hepatitis C screening Hepatitis C Screening [facility] Amphetamines [Presen ce] in Urine by Screen method >1000 ng/mL [facility] Benzodiazepine measurement, urine [facility] Cocaine measurement, urine [facility] Ethanol [Mass/volume ] in Serum or Plasma [facility] fentaNYL [Presence] in Urine by Screen method [facility] Folate [Moles/volume ] in Serum or Plasma [facility] Hemoglobin A1c/Hemoglobin.total in Blood [facility] Methadone measuremen t, urine [facility] Patient Education What Is Aphasi a? Dysarthria: Improving Speech Treating Aphasia ED How to Quit Smoking [facility] Work Phone: Patient referral [facility] Work Phone: Phencyclidine [Prese nce] in Urine [facility] Urine cannabinoid measurement [facility] Urine opiate measurement [facility] Payers Date Payer Category Payer Self-pay 2024 Unknown [id number] 2019 Medicaid MEDICAID [facility] MEDICAID [id number] 2019-Present [phone] [address] [place] [address] Medicaid [id number] 2019 Medicaid [id number] Unknown [id number] Unknown [id number] Unknown [id number] Unknown [id number] Unknown [id number] Social History Date Type Detail Facility Tobacco smoking status RIIS Tobacco smoking consumption unknown [facility] Work Phone: Start: 1955 Sex Assigned At Not on file [facility] Gender identity Not on file [facility] in Start: 08-19-2024 End: 09-18-2024 Tobacco smoking status RIIS Smokes tobacco daily (finding) [facility] Start: 1955 Sex Assigned At Female [facility] Mental Status Date Assessment Result Facility 09-18-2024 Cognitive function Appropriate;Cooperativ e [facility] Work Phone: 08-19-2024 Cognitive function Level Of Cons ciousness Awake;Alert;Appropriate;Follow s Commands [facility] Work Phone: Radiology Diagnostic study note 08-19-2024 Note Date & Type Note Facility 08-19-2024 Radiology Diagnostic study note [facility] Imaging Services [address] [place] [address] Chest 1 View MR#: [id number] Acct: [id number] Name: MODESTA MCDANIELS RAAD Rep #: [id number] : 1955 F 69 From: Pat Fernandez MD PCP: Care Physician,No Primary Status: REG ER Study:Chest 1 View Date of Exam: Exam# [id number] Ordering Dr: Rojelio Ferrer DO PROCEDURE: CHEST 1 VIEW 08/19/2024 REASON FOR EXAM: NEURO DEFICIT, ACUTE, STROKE SUSPECTED TECHNIQUE: Frontal view of the chest. COMPARISON: None. FINDINGS: Hardware: None. Heart: The heart size is normal. Lungs: Findings of emphysema with scattered areas of scarring. No focal consolidation, pleural effusion or pneumothorax. Bones: Degenerative changes are identified within the thoracic spine. Bilateralglenohumeral joint arthrosis. RAD/Chest 1 View IMPRESSION: COPD. No acute findings. Reading Location: [facility] CC: Dr. Rojelio Ferrer DO; No Primary Care Physician ~ Yarn Sorter: Signed [facility] Radiology Diagnostic study note 08-19-2024 Note Date & Type Note Facility 08-19-2024 Radiology Diagnostic study note [facility] Imaging Services [address] [place] [address] STROKE CTA Head AND Neck W/Con MR#: [id number] Acct: [id number] Name: MODESTA MCDANIELS RAAD Rep #: [id number] : 1955 F 69 From: Pat Fernandez MD PCP: Care Physician,No Primary Status: REG ER Study:STROKE CTA Head AND Neck W/Con Date of Exam: 08/19/24 Exam# [id number] Ordering Dr: Rojelio Ferrer DO PROCEDURE: STROKE CTA HEAD AND NECK W/CON 08/19/2024 REASON FOR EXAM: NEURO DEFICIT, ACUTE, STROKE SUSPECTED TECHNIQUE: STROKE CTA HEAD AND NECK W/CON Multiplanar and multisequence images were obtained. CONTRAST: ISOVUE 370 VOLUME: 100 mL One or more dose reduction techniques were used (e.g., Automated exposure control, adjustment of the mA and/or kV according to patient size, use of iterative reconstruction technique). RADIATION DOSE SUMMARY: CTDlvol: 100 mGy DLP: 1800 mGycm COMPARISON: Same-day noncontrast CT head. FINDINGS: See same day CT head for discussion of nonvascular findings. Visualization is significantly limited by motion artifact despite repeated imaging sequences. CTA neck: Three-vessel aortic arch with mixed calcific plaque. The origins of the bilateral vertebral arteries are widely patent. Mixed calcific plaque of the bilateral cervical carotid arteries without focal stenosis or narrowing by NASCET criteria. CTA head: Atherosclerotic plaque of the bilateral carotid siphons resulting in moderate multifocal narrowing on the right. The bilateral anterior, middle and posterior cerebral arteries are grossly patent. Visualization of the more distal arteries is limited by motion artifact. No obvious aneurysm or AVM. Major venous structures: Grossly unremarkable. Other findings: Right thyroid lobe nodules which do not meet criteria for dedicated follow-up. Multiple dental caries. Mild cervical spondylosis. Biapical emphysema. CT/STROKE CTA Head AND Neck W/Con IMPRESSION: Limited visualization due to motion artifact. No large vessel occlusion, AVM oraneurysm. Reading [facility] CC: Dr. Rojelio Ferrer DO; No Primary Care Physician ~ Yarn Sorter: Signed [facility] Radiology Diagnostic study note 08-19-2024 Note Date & Type Note Facility 08-19-2024 Radiology Diagnostic study note [facility] Imaging Services [address] [place], [place] [id number] STROKE Brain/Head without Cont MR#: [id number] Acct: [id number] Name: MODESTA MCDANIELS Rep #: [id number] : [id number] F 69 From: Pat Fernandez MD PCP: Care Physician,No Primary Status: REG ER Study:STROKE Brain/Head without Cont Date of Exam: 08/19/24 Exam# [id number] Ordering Dr: Rojelio Ferrer DO EXAM: STROKE BRAIN/HEAD WITHOUT CONT CLINICAL HISTORY: 69 y/o F with NEURO DEFICIT, ACUTE, STROKE SUSPECTED. COMPARISON: None. TECHNIQUE: Routine CT imaging of the head without IV contrast. Additional multiplanar reformats were obtained. Dose reduction techniques were used including intermediate exposure control (AEC),iterative reconstruction technique, and/or mA and/or KV dose adjustments based on patient's size. FINDINGS: The ventricles and subarachnoid spaces are normal for patient age. No acute intracranial hemorrhage or herniation. Small chronic ischemic type infarcts within the left frontoparietal lobe and left cerebellum. Lacunar type infarcts within the bilateral basal ganglia and left centrum semiovale. Mild scattered supratentorial white matter hypodensities. The gonzalez-white matter interfaces are otherwise maintained. The orbits, visualized paranasal sinuses and mastoids are unremarkable. No acute calvarial fracture or scalp hematoma. CT/STROKE Brain/Head without Cont IMPRESSION: 1. No acute intracranial finding. 2. Findings of chronic microvascular ischemic changes and age-related changes. Dr. Fernandez discussed these findings via telephone with Dr. Ferrer at 12:22 p.m. on 08/19/2024. Reading Location: [id number] CC: Dr. Rojelio Ferrer DO; No Primary Care Physician ~ Yarn Sorter: Signed [facility] Progress note 08-29-2023 Note Date & Type Note Facility 08-29-2023 Note HNO ID: [id number] Author: CHRISS RIVERA APRN.JACKI Service: ? Author Type: Nurse Practitioner Type: Progress Notes Filed: 08/29/2023 16:16 Note Text: Patient LWBS. [facility] History of Present illness Narrative 08-29-2023 Chriss Rivera APRN.MANDARIN TEACHER - 08/29/2023 4:16 PM EDT Note Date & Type Note Facility 08-29-2023 History of Presen t illness Narrative Images from the original note were not included. Patient LWBS. documented in this encounter [facility] Evaluation note Note Date & Type Note Facility Evaluation note Diagnosis Treatment not available- Primary Procedure not carried out for other reasons documented in this encounter [facility] Evaluation note Note Date & Type Note Facility Evaluation note No assessment information availa ble [facility] Work Phone: Evaluation note Note Date & Type Note Facility Evaluation note Diagnosis Onset Date Resolution History of CVA (cerebrovascular accident) acute September 18, 2024 8:56pm Obesity (BMI 30-39.9) acute Sep 8:56pm Tobacco use acute September 18 8:56pm Hypertension chronic September 18, 025 8:56pm [facility] Work Phone: Hospital Discharge instructions Note Date & Type Note Facility Hospital Discharge instructions Additional Instructions Take 1 regular strength aspirin daily [facility] Work Phone: Reason for referral (narrative) Note Date & Type Note Facility Reason for referral (narrative) No reason for referral information available [facility] Work Phone: Summary Purpose Family History No Family History Records FoundNo Family History Records Found Advance Directives Advance Directive Response Recorded Date/ Time Do you have a Healthcare Power of Plant Taxonomist? No August 19, 2024 11:15am Advance Directive Response Recorded Date/ Time Do you have a Healthcare Power of Plant Taxonomist? No September 18, 2024 6:38pm Do you have a Healthcare Power of Plant Taxonomist? No August 19, 2024 11:15am Chief Complaint and Reason for Visit Chief Complaint Admit Date general illness August 19, 2024 11:0 1am Chief Complaint Admit Date general illness August 19, 2024 11:0 1am CKD September 17, 2024 8:41 am APHASIA, R/O CVA, REFUSED HOSP ADMIT Sep 12:57pm SUBACUTE LEFT FRONTAL CVA ON OUTPATIENT MRI September 18, 2024 8:56pm Reason for Visit Admit Date History of CVA (cerebrovascular accident ) September 18, 2024 8:56pm Obesity (BMI 30-39.9) September 18, 2024 8: 56pm Tobacco use September 18, 2024 8:56 pm Hypertension September 18, 2024 8:56 pm Additional Source Comments Source Comments (unrecognize d section and content) In the event this informatio n is protected by the Federal Confidentiality of Alcohol and Drug Abuse Patient Records regulations: The Federal rules restrict any use of the information to criminally investigate or prosecute any alcohol or drug abuse patient.[facility] the event this information is protected by the Federal Confidentiality of Alcohol and Drug Abuse Patient Records regulations: The Federal rules restrict any use of the information to criminally investigate or prosecute any alcohol or drug abuse patient.[facility] Reason for Visit (unrecogniz ed section and content) Reason Comments Appointment Cancelled INFORMATION SOURCE (unrecogn ized section and content) DATE CREATED AUTHOR 09/03/2023 [facility] DATE CREATED AUTHOR AUTHOR'S ORGANIZ ATION 09/18/2024 [facility] Care Teams (unrecognized sec tion and content) Team Status: Active Member Role Status Dates No Primary Care Physician Primary Care Provider Active Team Status: Inactive Member Role Status Dates Dr. Rojelio Ferrer DO Emergency Provider Active Start: August 19, 2024 End: August 19, 2024 No Primary Care Physician Primary Care Provider Active Start: August 19, 2024 End: August 19, 2024 Team Status: Active Member Role/Relationship Status Dates Zebulun Beam VSC, LINTING MACHINE OPERATOR-C Primary Care Provider Active Team Status: Inactive Member Role/Relationship Status Dates Dr. Rojelio Ferrer DO Attending Provider Active Start: August 19, 2024 End: August 19, 2024 Dr. Rojelio Ferrer DO Emergency Provider Active Start: August 19, 2024 End: August 19, 2024 No Primary Care Physician Primary Care Provider Active Start: August 19, 2024 End: August 19, 2024 Team Status: Inactive Member Role/Relationship Status Dates Zebulun Beam VSC, LINTING MACHINE OPERATOR-C Primary Care Provider Active Start: August 29, 2024 End: August 29, 2024 Zebulun Beam VSC, LINTING MACHINE OPERATOR-C Attending Provider Active Start: August 29, 2024 End: August 29, 2024 Team Status: Active Member Role/Relationship Status Dates Zebulun Beam VSC, LINTING MACHINE OPERATOR-C Primary Care Provider Active Start: September 17, 2024 Zebulun Beam VSC, LINTING MACHINE OPERATOR-C Attending Provider Active Start: September 17, 2024 Zebulun Beam VSC, LINTING MACHINE OPERATOR-C Referring Provider Active Start: September 17, 2024 Team Status: Active Member Role/Relationship Status Dates Zebulun Beam VSC, LINTING MACHINE OPERATOR-C Primary Care Provider Active Start: September 17, 2024 Dr. Rojelio Dean MD Attending Provider Active S tart: September 17, 2024 Team Status: Active Member Role/Relationship Status Dates Zebulun Beam VSC, LINTING MACHINE OPERATOR-C Primary Care Provider Active Start: September 18, 2024 Zebulun Beam VSC, LINTING MACHINE OPERATOR-C Attending Provider Active Start: September 18, 2024 Zebulun Beam VSC, LINTING MACHINE OPERATOR-C Referring Provider Active Start: September 18, 2024 Team Status: Active Member Role/Relationship Status Dates Zebulun Beam VSC, LINTING MACHINE OPERATOR-C Primary Care Provider Active Start: September 18, 2024 Dr. Rojelio Ferrer DO Emergency Provider Active Start: September 18, 2024 Dr. Caleb Garcia DO Admit Provider Active Start: September 18, 2024 Dr. Caleb Garcia DO Attending Provider Active Start: September 18, 2024 Goals (unrecognized section and content) Goals may be documented in a n alternate sectionGoals may be documented in an alternate sectionGoals may be documented in an alternate section FOR RECORDS PERTAINING TO PATIENTS WHO ARE [...] BE BASED ON THE PRIMARY CLINICAL RECORDS. [facility] [employer] [facility]. provides no warranty or guarantee of the accuracy or completeness of information in this document.
[2024-09-18 22:59] LABS: Vitamin B12 457 pg/mL (180-914)
[2024-09-18] MEDS: Folic Acid 1 MG in 0.9% Normal Saline (50mL Bag) 50 ML 200 MG IV (23:03)
[2024-09-18] MEDS: 0.9% Normal Saline (1000mL) 1,000 ML 50 ML IV (23:03)
[2024-09-19 00:45] VITALS: BMI 37.3
[2024-09-19 02:00] VITALS: BP 158/77; PULSE 81; RESP 16; TEMP 36.4; O2SAT 99
[2024-09-19 06:00] VITALS: BP 143/71; PULSE 80; RESP 16; TEMP 36.6; O2SAT 96
--- NOTE | 2024-09-19 08:12 | PCM.PN.HOSP ---
Reason for Visit Chief Complaint: MRI positive for subacute infarct in Left-frontal lobe. Subjective Subjective Still with some slurred speech, but improved overall. Objective Data Objective Data Vital Signs: Vital Signs Temp Pulse Resp BP Pulse Ox O2 Del Method 36.6 C 80 16 143/71 H 96 Room Air 09/19/24 06:00 09/19/24 06:00 09/19/24 06:00 09/19/24 06:00 09/19/24 06:00 09/19/24 06:00 Oxygen Delivery Method Room Air Weight: 92.6 kg Body Mass Index (BMI) 37.3 Intake & Output: Intake and Output for Last 24 Hours 09/17/24 09/18/24 09/19/24 23:59 23:59 23:59 Intake Total 50.2 / 50.2 Balance 50.2 / 50.2 Lab / Micro Data 09/18/24 19:28 09/18/24 19:28 Labs: Laboratory Results - last 24 hr 09/18/24 19:24: Urine Color Yellow, Urine Clarity Clear, Urine pH 6.0, Ur Specific Eagle 1.015, Urine Protein 15 H, Urine Glucose (UA) Normal, Urine Ketones Negative, Urine Occult Blood 25 H, Urine Nitrite Negative, Urine Bilirubin Negative, Urine Urobilinogen Normal, Ur Leukocyte Esterase Negative, Urine RBC 0-5 SEEN, Urine WBC 0-5 SEEN, Ur Squamous Epith Cells 0-5 SEEN, Ur Transition Epith Cell 0-5 SEEN, Urine Bacteria 1+, Urine Mucus 0 SEEN, Urine Opiates Screen NEGATIVE, U Buprenorphine Qual NEGATIVE, Ur Oxycodone Screen NEGATIVE, Urine Methadone Screen NEGATIVE, Urine Fentanyl Screen NEGATIVE, Ur Barbiturates Screen NEGATIVE, Ur Phencyclidine Scrn NEGATIVE, Ur Amphetamines Screen NEGATIVE, U Benzodiazepines Scrn NEGATIVE, Urine Cocaine Screen NEGATIVE, U Cannabinoids Screen NEGATIVE 09/18/24 19:28: WBC 12.6 H, RBC 4.89, Hgb 14.8, Hct 43.2, MCV 88.3, MCH 30.3, MCHC 34.3, RDW Std Deviation 42.5, RDW Coeff of Temo 13.1, Plt Count 346, MPV 10.1, Immature Gran % (Auto) 0.400, Neut % (Auto) 73.1 H, Lymph % (Auto) 19.2, Hamlin % (Auto) 5.7, Eos % (Auto) 0.6, Baso % (Auto) 1.0, Absolute Neuts (auto) 9.2 H, Absolute Lymphs (auto) 2.41, Nucleated RBC % 0, PT 13.7, INR 1.0, APTT 26.2, Sodium 138, Potassium 3.9, Chloride 100, Carbon Dioxide 21.7, Anion Gap 17 H, BUN 19, Creatinine 1.22 H, Estim Creat Clear Calc 44.51 L, Est GFR (MDRD) Non-Af 47 L, BUN/Creatinine Ratio 15.7, Glucose 165 H, Calcium 9.5 09/18/24 21:08: Hemoglobin A1c 7.2 H, Vitamin B12 457, Serum Folate 4.37 L, TSH 1.890, Ethyl Alcohol < 10.1 09/18/24 23:01: POC Glucose 148 H 09/19/24 06:18: POC Glucose 185 H Physical Exam Const alert and no apparent distress HEENT head/scalp atraumatic and moist oral mucous membranes Resp normal respiratory effort, no retractions, no use of accessory muscles and clear to auscultation bilaterally Neuro oriented x3, moves all extremities, no focal motor deficits and no sensory deficits noted Neuro Narrative: Barely perceptible slurred speech very sporadically mostly it is very comprehensible with no word finding difficulties. Sensorium / Orientation: awake, alert, oriented to person, oriented to place and oriented to time Coordination / Balance: [id number] test normal Assessment & Plan Assessment/Plan (1) Stroke: PLAN: Noted on MRI from the . Patient had left frontal lobe subacute infarct which could be 3 to 4 weeks old. Check carotids and echo Teleneurology consult. Patient had a CTA of the head neck on August 20 that was negative as well as a head CT at that time. Likely the onset of the symptoms was back then but patient was not admitted to the hospital at that time. Patient continued aspirin, 3 weeks of clopidogrel, high intensity statin. Event monitor. Follow-up neurology as outpatient. PLAN: Plan Chronic medical conditions Class II obesity: Complicates care and recovery. Hypertension: Amlodipine Diabetes mellitus type 2: A1c 7.2. VTE prophylaxis with enoxaparin NIHSS NIHSS Nursing Documentation NIHSS Nursing Documentation: NIHSS: Ischemic Stroke/TIA Start: 09/18/24 22:05 Text: For PCU Patients: NIH and Neuro Check every 4 Status: Active hours, PRN and with change in RN caregiver. Freq: [id number] Protocol: Activity Type Activity Date Activity User E-sign Co-sign Detail Recorded Client Recorded Date Recorded By Document 09/19/24 06:00 RAMEZ [id number] 09/19/24 06:48 RAMEZ 09/19/24 06:00 NIH Stroke Scale [NIHSS] A score of 0 is normal or asymptomatic . Total possible score is 42. Inpatient: RN or Physician to activate a stroke alert for onset of new stroke symptoms or with NIHSS increase >/= 3 points. Following change in neurological status, NIHSS will be performed per physician order or more frequently PRN. -1a. Level of Consciousness 0 - Alert; keenly responsive -1b. LOC Questions 0 - Answers BOTH questions correctly -1c. LOC Commands 0 - Performs BOTH tasks correctly -2. Best Gaze 0 - Normal -3. Visual 0 - No visual loss -4. Facial Palsy 0 - Normal symmetrical movements -5a. Left Arm 0 - No drift; arm holds 90 ( or 45) degrees for full 10 seconds -5b. Right Arm 0 - No drift; arm holds 90 ( or 45) degrees for full 10 seconds -6a. Left Leg 0 - No drift; leg holds 30- degree position for full 5 seconds -6b. Right Leg 0 - No drift; leg holds 30- degree position for full 5 seconds -7. Limb Ataxia 0 - Absent -8. Sensory 0 - Normal; no sensory loss -9. Best Language 1 - Mild-to- moderate aphasia; -10. Dysarthria 0 - Normal -11. Extinction and Inattention 0 - No abnormality -Total 1 Query Text:A score of 0 is normal or asymptomatic. Total possible score is 42 . ED: Notify Physician for NIHSS increase by > / = 3 points. Inpatient: RN or Physician to activate a stroke alert for NIHSS increase of > / = 3 points. Coma Scale [Assess] -Eye Opening Spontaneous -Motor Obeys Commands -Verbal Oriented [Total] -Coma Scale Total 15 NIHSS: Ischemic Stroke/TIA Start: 09/18/24 22:05 Text: For ICU Patients: NIH sroke scale at Status: Complete presentation and every 2 hours or with change in RN caregiver Freq: [id number] Protocol: Activity Type Activity Date Activity User E-sign Co-sign Detail Recorded Client Recorded Date Recorded By Document 09/18/24 22:20 [id number] 09/18/24 22:37 RAMEZ 09/18/24 22:20 NIH Stroke Scale [NIHSS] A score of 0 is normal or asymptomatic . Total possible score is 42. Inpatient: RN or Physician to activate a stroke alert for onset of new stroke symptoms or with NIHSS increase >/= 3 points. Following change in neurological status, NIHSS will be performed per physician order or more frequently PRN. -1a. Level of Consciousness 0 - Alert; keenly responsive -1b. LOC Questions 0 - Answers BOTH questions correctly -1c. LOC Commands 0 - Performs BOTH tasks correctly -2. Best Gaze 0 - Normal -3. Visual 0 - No visual loss -4. Facial Palsy 0 - Normal symmetrical movements -5a. Left Arm 0 - No drift; arm holds 90 ( or 45) degrees for full 10 seconds -5b. Right Arm 0 - No drift; arm holds 90 ( or 45) degrees for full 10 seconds -6a. Left Leg 0 - No drift; leg holds 30- degree position for full 5 seconds -6b. Right Leg 0 - No drift; leg holds 30- degree position for full 5 seconds -7. Limb Ataxia 0 - Absent -8. Sensory 0 - Normal; no sensory loss -9. Best Language 1 - Mild-to- moderate aphasia; -10. Dysarthria 0 - Normal -11. Extinction and Inattention 0 - No abnormality -Total 1 Query Text:A score of 0 is normal or asymptomatic. Total possible score is 42 . ED: Notify Physician for NIHSS increase by > / = 3 points. Inpatient: RN or Physician to activate a stroke alert for NIHSS increase of > / = 3 points. Coma Scale [Assess] -Eye Opening Spontaneous -Motor Obeys Commands -Verbal Oriented [Total] -Coma Scale Total 15
[2024-09-19 08:38] LABS: Cholesterol 155 mg/dL (<=200); Low Density Lipoprotein Calc. 77 mg/dL; Triglycerides 126 mg/dL; Very Low Density Lipoprotein 25 mg/dL (5-40); cholesterol:hdl ratio screen 2.95
[2024-09-19 09:51] VITALS: BP 161/80; PULSE 98; RESP 14; TEMP 36.7; O2SAT 97
[2024-09-19] MEDS: Folic Acid 1 MG in 0.9% Normal Saline (50mL Bag) 50 ML 200 MG IV (09:54)
--- NOTE | 2024-09-19 13:38 | STROKE.CONS ---
Assessment and Plan: Stroke Assessment/Plan MODESTA MCDANIELS, is a 69 F with a past medical history of essential hypertension, obesity (class II); with a BMI of 36.9, chronic tobacco abuse (decreased to 3 cig/day), who has had 2 presentations now of expressive aphasia since August 2024. She initially presented on 08/19 but left without completion of workup, and now presents again when MRI returned positive for subacute infarct in the Left frontal lobe. Left Frontal Lobe Subacute Ischemic Infarct Etiology: pending completion of workup MRI complete. Please obtain repeat CTA Head and Neck this admission to better quantify any atherosclerotic disease burden of cerebral circulation. Follow up TTE LDL 77, A1C 7.2 Continue ASA 81 mg daily Increase statin to 40 mg Atorvastatin Vascular risk factor modification Follow up in Neurovascular clinic in 4-6 weeks. Follow up with PCP in 1-2 weeks. HPI Consult Data Date of Consult: 09/19/24 HPI Narrative HPI Narrative: MODESTA MCDANIELS, is a 69 F with a past medical history of essential hypertension, obesity (class II); with a BMI of 36.9, chronic tobacco abuse (decreased to 3 cig/day), who has had 2 presentations now of expressive aphasia since August 2024. She initially presented on 08/19 but left without completion of workup, and now presents again when MRI returned positive for subacute infarct in the Left frontal lobe. She reports sudden onset of symptoms last month. Never has had strokes in the past. Is not on any AC/AP. Does have history of HTN. Does smoke, but has decreased to 3 cig/day now. LDL 77. A1C 7.2. New diagnosis of DM this admission with initiation of insulin. She denies new focal weakness, numbness, headache, vision changes. She also denies associated fever, chills, runny nose, sore throat, ear pain, chest pain, palpitations, heart racing, lower extremity edema, shortness of breath, cough, abdominal pain, nausea, vomiting, diarrhea, constipation. Examination today she is alert and oriented x 4. She is able to follow commands. She does have some paraphasic errors with speech and mild aphasia. She has difficulty with longer sentences. Repetition and naming object is largely intact. Otherwise nonfocal. [facility] Medical History Hypertension GERD (gastroesophageal reflux disease) Medical History no medical history Home Medications ?Medication ?Instructions ?Recorded ?Last Taken ?Type amlodipine 10 mg tablet 10 mg PO DAILY 09/18/24 09/18/24 History aspirin 81 mg tablet 81 mg PO DAILY 09/18/24 09/18/24 History pantoprazole 40 mg tablet,delayed 40 mg PO DAILY 09/18/24 09/18/24 History release Allergy/AdvReac Type Severity Reaction Status Date / Time No Known Allergies Allergy Verified 09/18/24 22:24 Surgical History Hx of hysterectomy Hx of cholecystectomy Social History Smoking Status: Current every day smoker tobacco type: cigarettes Vital Signs Vital Signs Vital Signs: 09/18/24 18:28 09/18/24 20:00 09/18/24 20:51 Temperature 98.1 F 98.2 F Temperature Source Oral Pulse Rate 133 H 100 101 H Pulse Strength Respiratory Rate 21 H 18 18 Respiratory Effort Respiratory Depth Respiratory Pattern Blood Pressure 168/95 H 136/84 H 143/81 H Blood Pressure Mean 119 101 101 Blood Pressure Source Blood Pressure Position Blood Pressure Location Pulse Ox 98 97 98 Oxygen Delivery Method Room Air 09/18/24 22:05 09/18/24 22:20 09/19/24 02:00 Temperature 98.1 F 97.6 F L Temperature Source Oral Oral Pulse Rate 102 H 81 Pulse Strength Respiratory Rate 16 16 Respiratory Effort Normal Non-Labored Respiratory Depth Normal Respiratory Pattern Normal Blood Pressure 149/75 H 158/77 H Blood Pressure Mean 99 104 Blood Pressure Source Monitor Monitor Blood Pressure Position Semi-Fowlers Sitting Blood Pressure Location Right Arm Right Arm Pulse Ox 97 99 Oxygen Delivery Method Room Air Room Air Room Air 09/19/24 02:00 09/19/24 06:00 09/19/24 07:55 Temperature 97.8 F Temperature Source Oral Pulse Rate 80 Pulse Strength Respiratory Rate 16 Respiratory Effort Normal Non-Labored Respiratory Depth Normal Respiratory Pattern Normal Blood Pressure 143/71 H Blood Pressure Mean 95 Blood Pressure Source Monitor Blood Pressure Position Sitting Blood Pressure Location Right Arm Pulse Ox 96 Oxygen Delivery Method Room Air Room Air Room Air 09/19/24 09:50 09/19/24 09:51 09/19/24 10:00 Temperature 98.0 F Temperature Source Oral Pulse Rate 98 Pulse Strength Normal (2+) Respiratory Rate 14 Respiratory Effort Normal Non-Labored Respiratory Depth Normal Respiratory Pattern Normal Blood Pressure 161/80 H Blood Pressure Mean 107 Blood Pressure Source Monitor Blood Pressure Position Sitting Blood Pressure Location Right Arm Pulse Ox 97 Oxygen Delivery Method Room Air Room Air Weight Weight: 92.6 kg Body Mass Index (BMI) 37.3 EEG Results Procedure Details EEG Procedure Details: MODESTA MCDANIELS is a 69 year old F with a past medical history of , who presents for evaluation of Electroencephalogram on DATE at TIME Physical Exam Narrative Alert and oriented Following commands Mild aphasia, parapahasic errors, Repetition and naming object is largely intact. EOMI. Mild R nasolabial fold flattening, resolves with activation. BLUE and BLLE moving antigravity without drift FTN intact. Slow finger taps on R. NIHSS 2 for mild aphasia and R nasolabial fold flattening Lab / Micro Data 09/18/24 19:28 09/18/24 19:28 Labs: Laboratory Results - last 24 hr 09/18/24 19:24: Urine Color Yellow, Urine Clarity Clear, Urine pH 6.0, Ur Specific [place] 1.015, Urine Protein 15 H, Urine Glucose (UA) Normal, Urine Ketones Negative, Urine Occult Blood 25 H, Urine Nitrite Negative, Urine Bilirubin Negative, Urine Urobilinogen Normal, Ur Leukocyte Esterase Negative, Urine RBC 0-5 SEEN, Urine WBC 0-5 SEEN, Ur Squamous Epith Cells 0-5 SEEN, Ur Transition Epith Cell 0-5 SEEN, Urine Bacteria 1+, Urine Mucus 0 SEEN, Urine Opiates Screen NEGATIVE, U Buprenorphine Qual NEGATIVE, Ur Oxycodone Screen NEGATIVE, Urine Methadone Screen NEGATIVE, Urine Fentanyl Screen NEGATIVE, Ur Barbiturates Screen NEGATIVE, Ur Phencyclidine Scrn NEGATIVE, Ur Amphetamines Screen NEGATIVE, U Benzodiazepines Scrn NEGATIVE, Urine Cocaine Screen NEGATIVE, U Cannabinoids Screen NEGATIVE 09/18/24 19:28: WBC 12.6 H, RBC 4.89, Hgb 14.8, Hct 43.2, MCV 88.3, MCH 30.3, MCHC 34.3, RDW Std Deviation 42.5, RDW Coeff of Temo 13.1, Plt Count 346, MPV 10.1, Immature Gran % (Auto) 0.400, Neut % (Auto) 73.1 H, Lymph % (Auto) 19.2, [place] % (Auto) 5.7, Eos % (Auto) 0.6, Baso % (Auto) 1.0, Absolute Neuts (auto) 9.2 H, Absolute Lymphs (auto) 2.41, Nucleated RBC % 0, PT 13.7, INR 1.0, APTT 26.2, Sodium 138, Potassium 3.9, Chloride 100, Carbon Dioxide 21.7, Anion Gap 17 H, BUN 19, Creatinine 1.22 H, Estim Creat Clear Calc 44.51 L, Est GFR (MDRD) Non-Af 47 L, BUN/Creatinine Ratio 15.7, Glucose 165 H, Calcium 9.5 09/18/24 21:08: Hemoglobin A1c 7.2 H, Vitamin B12 457, Serum Folate 4.37 L, TSH 1.890, Ethyl Alcohol < 10.1 09/18/24 23:01: POC Glucose 148 H 09/19/24 06:18: POC Glucose 185 H 09/19/24 06:46: Triglycerides 126, Cholesterol 155, LDL Cholesterol, Calc 77, VLDL Cholesterol 25, HDL Cholesterol 53, Cholesterol/HDL Ratio 2.95 09/19/24 11:21: POC Glucose 190 H Imaging Radiology Impression Echocardiogram 09/18/24 21:01 Interpretation Summary The estimated ejection fraction is 65 %. The study was technically difficult. Ordering Physician: Caleb Garcia Referring Physician: Mai Beckham Performed By: Felicita Miller, JANICE, RVT Active Medications Active Medications Active Medications: Current Medications Generic Name Dose Route Start Last Admin Trade Name Freq PRN Reason Stop Dose Admin Acetaminophen 650 mg 09/18/24 22:05 Acetaminophen 325 Mg Tablet PO Q4H PRN PRN Pain 1-10 Or Fever>99.6 Amlodipine Besylate 10 mg 07/16/25 10:00 09/19/24 09:54 Amlodipine 10 Mg Tablet PO 10 mg DAILY JOANNE Administration Protocol Aspirin 81 mg 09/19/24 08:00 09/19/24 09:54 Aspirin 81 Mg Tab.Chew PO 81 mg BREAKFAST JOANNE Administration Atorvastatin Calcium 20 mg 09/18/24 21:15 09/18/24 23:03 Atorvastatin Calcium 20 Mg Tablet PO 20 mg QHS JOANNE Administration Enoxaparin Sodium 40 mg 09/19/24 10:00 09/19/24 09:54 Enoxaparin 40 Mg/0.4 Ml Syringe SC 40 mg DAILY JOANNE Administration Glucagon 1 mg 09/18/24 22:35 Glucagon 1 Mg/Ml Syringe IM X1 PRN Hypoglycemia Protocol Sodium Chloride 250 mls @ 15 mls/hr 09/18/24 22:23 IV .[id number] PRN Saline Flush Sodium Chloride 250 mls @ 15 mls/hr 09/18/24 22:23 IV .[id number] PRN Additional IVPB Infusion Folic Acid 1 mg/ Sodium 50.2 mls @ 200 mls/hr 09/18/24 22:35 09/19/24 10:10 Chloride IV Infused DAILY JOANNE Infusion Dextrose 250 mls @ 0 mls/hr 09/18/24 22:35 Dextrose 10%-Water IV .Q0M PRN HYPOGLYCEMIA Protocol As Directed Insulin Human Lispro 0 unit 09/19/24 07:00 09/19/24 11:21 Insulin Lispro 100 Unit/Ml Insuln.Pen SC 1 u ACHS JOANNE Administration Protocol Nicotine 14 mg 09/18/24 21:20 09/19/24 10:00 Nicotine 14 Mg Patch TD Not Given DAILY [facility] Ondansetron HCl 4 mg 09/18/24 22:05 Ondansetron 4 Mg/2 Ml Vial IV Q6H PRN PRN NAUSEA/VOMITING Pantoprazole Sodium 40 mg 09/19/24 10:00 09/19/24 09:53 Pantoprazole Sodium 40 Mg Tablet PO 40 mg DAILY JOANNE Administration Sodium Chloride 10 - 40 ml 09/18/24 22:23 0.9% Saline Lock 10 Ml Syringe IV UD PRN SALINE FLUSH NIHSS NIHSS Nursing Documentation NIHSS Nursing Documentation: NIHSS: Ischemic Stroke/TIA Start: 09/18/24 22:05 Text: For PCU Patients: NIH and Neuro Check every 4 Status: Active hours, PRN and with change in RN caregiver. Freq: [id number] Protocol: Activity Type Activity Date Activity User E-sign Co-sign Detail Recorded Client Recorded Date Recorded By Document 09/19/24 09:50 MLB [id number] 09/19/24 11:35 MLB 09/19/24 09:50 NIH Stroke Scale [NIHSS] A score of 0 is normal or asymptomatic . Total possible score is 42. Inpatient: RN or Physician to activate a stroke alert for onset of new stroke symptoms or with NIHSS increase >/= 3 points. Following change in neurological status, NIHSS will be performed per physician order or more frequently PRN. -1a. Level of Consciousness 0 - Alert; keenly responsive -1b. LOC Questions 0 - Answers BOTH questions correctly -1c. LOC Commands 0 - Performs BOTH tasks correctly -2. Best Gaze 0 - Normal -3. Visual 0 - No visual loss -4. Facial Palsy 0 - Normal symmetrical movements -5a. Left Arm 0 - No drift; arm holds 90 ( or 45) degrees for full 10 seconds -5b. Right Arm 0 - No drift; arm holds 90 ( or 45) degrees for full 10 seconds -6a. Left Leg 0 - No drift; leg holds 30- degree position for full 5 seconds -6b. Right Leg 0 - No drift; leg holds 30- degree position for full 5 seconds -7. Limb Ataxia 0 - Absent -8. Sensory 0 - Normal; no sensory loss -9. Best Language 1 - Mild-to- moderate aphasia; -10. Dysarthria 0 - Normal -11. Extinction and Inattention 0 - No abnormality -Total 1 Query Text:A score of 0 is normal or asymptomatic. Total possible score is 42 . ED: Notify Physician for NIHSS increase by > / = 3 points. Inpatient: RN or Physician to activate a stroke alert for NIHSS increase of > / = 3 points. Coma Scale [Assess] -Eye Opening Spontaneous -Motor Obeys Commands -Verbal Oriented [Total] -Coma Scale Total 15 NIHSS: Ischemic Stroke/TIA Start: 09/18/24 22:05 Text: For ICU Patients: NIH sroke scale at Status: Complete presentation and every 2 hours or with change in RN caregiver Freq: [id number] Protocol: Activity Type Activity Date Activity User E-sign Co-sign Detail Recorded Client Recorded Date Recorded By Document 09/18/24 22:20 [id number] 09/18/24 22:37 RAMEZ 09/18/24 22:20 NIH Stroke Scale [NIHSS] A score of 0 is normal or asymptomatic . Total possible score is 42. Inpatient: RN or Physician to activate a stroke alert for onset of new stroke symptoms or with NIHSS increase >/= 3 points. Following change in neurological status, NIHSS will be performed per physician order or more frequently PRN. -1a. Level of Consciousness 0 - Alert; keenly responsive -1b. LOC Questions 0 - Answers BOTH questions correctly -1c. LOC Commands 0 - Performs BOTH tasks correctly -2. Best Gaze 0 - Normal -3. Visual 0 - No visual loss -4. Facial Palsy 0 - Normal symmetrical movements -5a. Left Arm 0 - No drift; arm holds 90 ( or 45) degrees for full 10 seconds -5b. Right Arm 0 - No drift; arm holds 90 ( or 45) degrees for full 10 seconds -6a. Left Leg 0 - No drift; leg holds 30- degree position for full 5 seconds -6b. Right Leg 0 - No drift; leg holds 30- degree position for full 5 seconds -7. Limb Ataxia 0 - Absent -8. Sensory 0 - Normal; no sensory loss -9. Best Language 1 - Mild-to- moderate aphasia; -10. Dysarthria 0 - Normal -11. Extinction and Inattention 0 - No abnormality -Total 1 Query Text:A score of 0 is normal or asymptomatic. Total possible score is 42 . ED: Notify Physician for NIHSS increase by > / = 3 points. Inpatient: RN or Physician to activate a stroke alert for NIHSS increase of > / = 3 points. Coma Scale [Assess] -Eye Opening Spontaneous -Motor Obeys Commands -Verbal Oriented [Total] -Coma Scale Total 15
--- NOTE | 2024-09-19 13:41 | DS.PCM_ITS ---
Providers Date of Admission: 09/18/24 Primary Care Physician: SHAQUILLE Zavaleta, SENIOR TELECOMMUNICATIONS TECHNICIAN-C Consultations 09/18/24 22:05 Consult: Tele-Neurology Routine Consulting Provider: [facility] Reason for Consult: Subacute Left-frontal Ischemic Stroke EMERGENT Consult: No MD Notified: Yes Date Notified: 09/19/24 Time Notified: 00:29 Method of Notification: Verbal Method of Consult:: Telemedicine Nursing Unit Staff Notify [facility] of Tele-Neurology Consult: Yes Reason For Visit: SUBACUTE LEFT FRONTAL CVA ON OUTPATIENT MRI Diagnosis Discharge Diagnosis (1) Stroke: Status: Acute Code(s): I63.9 - Cerebral infarction, unspecified Plan: Noted on MRI from the . Patient had left frontal lobe subacute infarct which could be 3 to 4 weeks old. Check carotids and echo Teleneurology consult. Patient had a CTA of the head neck on August 20 that was negative as well as a head CT at that time. Likely the onset of the symptoms was back then but patient was not admitted to the hospital at that time. Patient continued aspirin, 3 weeks of clopidogrel, high intensity statin. Event monitor. Follow-up neurology as outpatient. Plan Chronic medical conditions * Class II obesity: Complicates care and recovery. * Hypertension: Amlodipine * Diabetes mellitus type 2: A1c 7.2. VTE prophylaxis with enoxaparin Medications at Discharge Home Medications amlodipine 10 mg tablet 10 mg PO DAILY 09/18/24 aspirin 81 mg tablet 81 mg PO DAILY 09/18/24 pantoprazole 40 mg tablet,delayed release 40 mg PO DAILY 09/18/24 atorvastatin 80 mg tablet (Lipitor) 80 mg PO QHS #30 tabs 09/19/24 clopidogrel 75 mg tablet 75 mg PO DAILY #21 tabs 09/19/24 Hospital Course Operations None Procedures 2-D Echocardiogram Summary of Care Provided Hospital Course: Greater than 30 minutes spent on discharge. This is a 69-year-old female who presents with delayed presentation with expressive aphasia. MRI showed a small left frontal lobe infarct. Patient previously had CTA of the head and neck performed on August 19 that was negative. She had 2D echocardiogram showing EF 65%. Patient will be discharged with aspirin, 3 excludable, high intensity statin and follow-up with neurology. Patient have a 30-day event monitor. Weight / BMI Weight Weight: 92.6 kg Body Mass Index (BMI) 37.3 ABG / Lab / Microbiology Data 09/18/24 19:28 09/18/24 19:28 Laboratory: Laboratory Results - last 24 hr 09/18/24 19:24: Urine Color Yellow, Urine Clarity Clear, Urine pH 6.0, Ur Specific [place] 1.015, Urine Protein 15 H, Urine Glucose (UA) Normal, Urine Ketones Negative, Urine Occult Blood 25 H, Urine Nitrite Negative, Urine Bilirubin Negative, Urine Urobilinogen Normal, Ur Leukocyte Esterase Negative, Urine RBC 0-5 SEEN, Urine WBC 0-5 SEEN, Ur Squamous Epith Cells 0-5 SEEN, Ur Transition Epith Cell 0-5 SEEN, Urine Bacteria 1+, Urine Mucus 0 SEEN, Urine Opiates Screen NEGATIVE, U Buprenorphine Qual NEGATIVE, Ur Oxycodone Screen NEGATIVE, Urine Methadone Screen NEGATIVE, Urine Fentanyl Screen NEGATIVE, Ur Barbiturates Screen NEGATIVE, Ur Phencyclidine Scrn NEGATIVE, Ur Amphetamines Screen NEGATIVE, U Benzodiazepines Scrn NEGATIVE, Urine Cocaine Screen NEGATIVE, U Cannabinoids Screen NEGATIVE 09/18/24 19:28: WBC 12.6 H, RBC 4.89, Hgb 14.8, Hct 43.2, MCV 88.3, MCH 30.3, MCHC 34.3, RDW Std Deviation 42.5, RDW Coeff of Temo 13.1, Plt Count 346, MPV 10.1, Immature Gran % (Auto) 0.400, Neut % (Auto) 73.1 H, Lymph % (Auto) 19.2, [place] % (Auto) 5.7, Eos % (Auto) 0.6, Baso % (Auto) 1.0, Absolute Neuts (auto) 9.2 H, Absolute Lymphs (auto) 2.41, Nucleated RBC % 0, PT 13.7, INR 1.0, APTT 26.2, Sodium 138, Potassium 3.9, Chloride 100, Carbon Dioxide 21.7, Anion Gap 17 H, BUN 19, Creatinine 1.22 H, Estim Creat Clear Calc 44.51 L, Est GFR (MDRD) Non-Af 47 L, BUN/Creatinine Ratio 15.7, Glucose 165 H, Calcium 9.5 09/18/24 21:08: Hemoglobin A1c 7.2 H, Vitamin B12 457, Serum Folate 4.37 L, TSH 1.890, Ethyl Alcohol < 10.1 09/18/24 23:01: POC Glucose 148 H 09/19/24 06:18: POC Glucose 185 H 09/19/24 06:46: Triglycerides 126, Cholesterol 155, LDL Cholesterol, Calc 77, VLDL Cholesterol 25, HDL Cholesterol 53, Cholesterol/HDL Ratio 2.95 09/19/24 11:21: POC Glucose 190 H Radiography Diagnostic Testing: Radiology Impression Echocardiogram 09/18/24 21:01 Interpretation Summary The estimated ejection fraction is 65 %. The study was technically difficult. Ordering Physician: Caleb Garcia Referring Physician: Mai Beckham Performed By: Felicita Miller, JANICE, RVT D/C Instructions DC O2, CPAP, BIPAP Needs Home O2 Discharge instructions: No Meaningful Use Info Meaningful Use Meaningful Use Diagnoses (Choose all that apply): Ischemic CVA CVA Therapy Assessed for PT,OT and/or ST?: Yes Ischemic Stroke Antithrombotic order at d/c?: Yes Dx of Atrial fib/flutter?: No Anticoagulant at discharge?: No Reason anticoagulant not ordered: Treatment not Indicated Statins at discharge?: Yes If patient is 75 or younger, pt will be discharged on HIGH intensity statin.: Y es Primary Dx Acute Ischemic CVA?: Yes IV thrombolytic ordered during stay?: No Reason IV thrombolytic not ordered: Treatment not Indicated Discharge Plan Admission Admit Date/Time: 09/18/24 20:56 Primary Reason for Your Visit: CVA Attending Provider: Rojelio Croft Primary Care Provider: Mai Beckham [facility] Consulting Providers: Collins Francois; Luci Pardo; Stormy Allison; Shaye Hernández; Livier Baldwin; Glenroy Marsh; Meghann Santana; Lisandro Beltre; Riley Sheth; Tirso Armstrong; Gini Faria; Tang Hawthorne; Cheri Willoughby; Nigel Ibarra; Dereje Esquivel; Daniel Lagos; Kourtney Pagan; Darinel Dick; Wilda Martinez; Tamika Beasley; Caleb Garcia Discharge Orders/Prescriptions Prescriptions: New clopidogrel 75 mg tablet 75 mg PO DAILY Qty: 21 0RF atorvastatin [Lipitor] 80 mg tablet 80 mg PO QHS Qty: 30 0RF Continued amlodipine 10 mg tablet 10 mg PO DAILY pantoprazole 40 mg tablet,delayed release (DR/EC) 40 mg PO DAILY aspirin 81 mg tablet 81 mg PO DAILY Other Ambulatory Orders: 30 Day Event Recorder Preventi (Urgent) Timeframe: 1 Day Facility: [facility] - Location: Cardiovascular Services Ordered By: Dr. Rojelio Croft Referrals / Follow Up: [facility] [Provider Group] - Within 1 Month Mai Beckham, SENIOR TELECOMMUNICATIONS TECHNICIAN-C [Primary Care Provider] - Within 2 Weeks Disposition Disposition (needs filled in before D/C Order can be placed): Home, Self Care Charges/Coding Visit Charges Inpatient E&M: 92533 Disch Hosp >30min
[2024-09-19 14:22] VITALS: BMI 37.3
[2024-09-19 14:25] VITALS: BP 149/81; PULSE 94; RESP 16; TEMP 36.6; O2SAT 97
--- NOTE | 2024-09-19 14:38 | CASEMGMT ---
Social Work PHQ9 depression screen completed due to dx stroke. Pt with score of 1 and denies any concerns with depression at this time. DEMARIO Bowden
--- NOTE | 2024-09-19 14:41 | CASEMGMT ---
Social Work - Advance Directives SW met with pt and assisted in completeing HCPOA naming her daughter Willow. Pt declines desire to complete living will. Orginal given to pt and copy placed on pt chart. DEMARIO Bowden
--- NOTE | 2024-09-19 15:42 | CASEMGMT ---
Patient has order for discharge. RN CM in to discuss needs at discharge. Patient denies needs or help at discharge. Patient had no further questions or concerns.
--- NOTE | 2024-09-19 16:20 | CHAPLAIN ---
Type of Pastoral Visit _x__ Initial Visit ___ Follow-up Visit ___ On-call Visit ___ General Patient Visit ___ Spiritual Assessment ___ Family Conference ___ Bereavement ___ Rapid Response ___ Code Blue ___ Other (describe below) Pastoral Care Referral From _x__ Patient ___ Family ___ Nurse ___ Physician ___ Embroidery Specialist ___ Finish Inspector ___ Other (describe below) Sacrament/Intervention _x__ Active listening ___ Anointing ___ Buddhism ___ Bereavement ___ Communion ___ Zainab exploration ___ ___ Life review ___ Prayer ___ Reconciliation ___ Sacrament of Sick ___ Supportive presence ___ Wedding ___ Other (describe below) Pastoral Comments patient was dressed and waiting to be discharged; family members were in the room; family stated that patient was anxious to get home and she missed her cats; patient acknowledged the same and stated that she didn't like to stay in the hospital if at all possible; pt admitted that she recently had a stroke and left the hospital at her own wishes then; pt thanked this social service agency director about offer of support but that she did not need anything at this time
== END 2024-09-19 15:51 | disposition home or self-care (01) ==
LOC: ED 21:00 → PCU 21:04
PROVIDERS: Admitting Provider Internal Medicine; Emergency Provider Emergency Medicine
DX: I63.9 Cerebral infarction, unspecified (principal); E11.65 Type 2 diabetes mellitus with hyperglycemia; Z79.899 Other long term (current) drug therapy; I10 Essential (primary) hypertension; E66.812 Obesity, class 2; K21.9 Gastro-esophageal reflux disease without esophagitis; R47.81 Slurred speech; E53.8 Deficiency of other specified B group vitamins; Z79.82 Long term (current) use of aspirin; Z68.36 Body mass index [BMI] 36.0-36.9, adult; R47.01 Aphasia; F17.210 Nicotine dependence, cigarettes, uncomplicated
CPT/HCPCS: 36415; 70553; 80048; 80061; 80307; 81001; 82077; 82607; 82746; 82962; 83036; 84443; 85025; 85610; 85730; 92523; 93005; 93306; 93880; 96365; 96366; 96372; 97802; 99221; 99284; A9575; A4216; G0378

== ENCOUNTER → 2024-09-18 | Outpatient (CLI) | payer MEDICARE, MEDICAID, SELFPAY ==
--- NOTE | 2024-09-18 13:45 | MRI_ITS ---
PROCEDURE: BRAIN W/WO CONTRAST 09/18/2024 REASON FOR EXAM: APHASIA TECHNIQUE: BRAIN W/WO CONTRAST Multiplanar and multisequence images were obtained. CONTRAST: Clariscan VOLUME: 19 mL COMPARISON: Noncontrast head CT and CTA head and neck, August 19, 2024. FINDINGS: There is a small area of gyriform enhancement in the left frontal lobe, with associated vasogenic edema extending into the subcortical and periventricular white matter of the right frontal lobe. The DWI and ADC images demonstrate a mixed pattern. These findings are consistent with a subacute infarction. The patient demonstrates multiple lacunar infarctions in the periventricular white matter of both cerebral hemispheres and small cortical infarctions in both occipital lobes. Additionally, there are 2 areas of abnormal signal in the left cerebellar hemisphere, and in the left side of the eliana, consistent with chronic lacunar infarctions. Additionally, there are areas of abnormal periventricular and subcortical white matter signal consistent with chronic ischemic white matter disease. There is a normal sulcal pattern and gyral configuration. There is no evidence of acute intracranial hemorrhage. The gonzalez-white differentiation is well preserved. The ventricles and basilar cisterns are normal. There are normal flow voids demonstrated in the recognized intracranial vessels. The cerebellar pontine angles are normal. The craniovertebral junction is normal. The sella and suprasellar regions are normal. The orbits and retro-orbital regions are unremarkable. The nasal septum is midline. The paranasal sinuses are clear. The mastoid air cells are clear. There is normal bone marrow signal in the skull base and calvarium. MRI/Brain W/WO Contrast IMPRESSION: 1. The findings in the left frontal lobe are consistent with a subacute infarc tion which could be 3 to 4-week-old. 2. There are multiple chronic lacunar infarctions in the cerebral hemispheres, the left cerebellar hemisphere and the brainstem. 3. There is chronic ischemic white matter disease. Reading Location: [place] [id number]
== END | disposition home or self-care (01) ==
LOC: MRI 12:57
DX: R47.01 Aphasia (principal)
CPT/HCPCS: 70553; A9575

== ENCOUNTER → 2024-12-18 | Outpatient (CLI) | payer MEDICARE, MEDICAID, SELFPAY ==
[2024-12-18 12:31] LABS: Hematocrit 38.9 % (37-47); Hemoglobin 12.9 g/dL (12.0-15.0); Immature Granulocytes Count 0.030 X10^3/uL (0.0-0.0); Mean Corp Hgb Conc 33.2 g/dL (32-36); Mean Corpuscular Volume 90.5 fL (81-99); Mean Platelet Vol. 11.3 fl (6.2-12.0); NRBC Flagged by Analyzer 0 % (0-5); Platelet Count 253 K/mm3 (150-450); RBC Distribution Width CV 13.8 % (11.6-14.6); RBC Distribution Width SD 45.7 fl (35.1-43.9); Red Blood Count 4.30 M/mm3 (4.2-5.4); White Blood Count 8.0 K/mm3 (4.4-11.0)
[2024-12-18 13:15] LABS: AST(SGOT) 22 U/L (<=31); Alanine Aminotransfer ALT/SGPT 19 U/L (<=34); Albumin, Serum 4.1 g/dL (3.4-4.8); Alkaline Phosphatase 72 U/L (35-104); Anion Gap 14 (5-15); BUN 19 mg/dL (4-19); BUN/Creat Ratio 16.2 RATIO (10-20); Calcium,Total 9.3 mg/dL (7.6-11.0); Carbon Dioxide 23.2 mmol/L (21.0-32.0); Chloride 99 mmol/L (98-108); Cholesterol 131 mg/dL (<=200); Globulin 3.0 g/dL (2.2-4.2); Glucose 238 mg/dL (70-99); Low Density Lipoprotein Calc. 41 mg/dL; Potassium 4.0 mmol/L (3.3-5.1); Triglycerides 173 mg/dL; Very Low Density Lipoprotein 35 mg/dL (5-40); cholesterol:hdl ratio screen 2.36
== END | disposition home or self-care (01) ==
PROVIDERS: PCP Nurse Practitioner Family; Visit Provider Nurse Practitioner Family
DX: E11.9 Type 2 diabetes mellitus without complications (principal); Z86.73 Personal history of transient ischemic attack (TIA), and cerebral infarction without residual deficits
CPT/HCPCS: 36415; 80053; 80061; 83036; 85025

== ENCOUNTER → 2025-02-14 | Outpatient (CLI) | payer MEDICARE, MEDICAID, SELFPAY ==
--- NOTE | 2025-02-14 14:04 | ART_ITS ---
Reason For Study Reason For Study: Absent pedal pulses bilaterally Procedure A bilateral lower extremity continuous wave Doppler with analog waveform analysis and ankle brachial indexes. Left Segmental Pressures Left brachial= 131mmHg. Left posterior tibial artery = 63mmHg. Left dorsalis pedis artery = 51mmHg. Left digit = 59 mmHg. The left dorsalis pedis waveforms are monophasic. The left posterior tibial artery waveforms are biphasic. Right Segmental Pressures Right brachial= 138mmHg. Right posterior tibial artery = 68mmHg. Right dorsalis pedis artery = 62mmHg. Right digit = 49 mmHg. The right dorsalis pedis waveforms are monophasic. The right posterior tibial artery waveforms are biphasic. Indices The right ankle brachial index by the dorsalis pedis is 0.45. The right ankle brachial index by the posterior tibial artery is 0.49. The right post exercise ankle brachial index is 0.36. The left ankle brachial index by the dorsalis pedis is 0.37. The left ankle brachial index by the posterior tibial artery is 0.46. The left digital-brachial index is 0.43. . Preliminary report given to Princess. VL/Ankle Brachial Index Interpretation Summary Right JONH 0.49, severe arterial insufficiency. Doppler/PVR waveforms of the rig ht ankle severely diminished at rest. Left JONH 0.46, severe arterial insufficiency. Doppler/PVR waveforms of the left ankle severely diminished at rest. Ordering Physician: Kali Quinones Referring Physician: Karla Chaudhary Performed By: Sharifa Moses RVT
== END | disposition home or self-care (01) ==
LOC: CVS 14:03
PROVIDERS: PCP Nurse Practitioner Family; Referring Provider Psychiatry & Neurology Neurology; Visit Provider Psychiatry & Neurology Neurology
DX: R09.89 Other specified symptoms and signs involving the circulatory and respiratory systems (principal)
CPT/HCPCS: 93922